=== PATIENT | male | born 1950 | race Caucasian/White ===

== ENCOUNTER 2016-07-27 14:41 | Emergency (ER) | payer MEDICAID ==
--- NOTE | 2016-07-27 15:06 | EDPHY ---
H & P Stated Complaint: tripped yesterday banged r coats on rock HPI/ROS: HPI CHIEF COMPLAINT: Right coats injury HISTORY OF PRESENT ILLNESS: This patient is a very pleasant 65-year-old male he denies any significant medical history, does not take any daily medications he states he was weed whacking grass yesterday on a hill around 3:00 p.m. he sustained a injury to his right anterior lower coats and that is an avulsion laceration. It is not gaping. There is no pus from it. It is now 24 hours old. Tells me his tetanus shot is not up-to-date. He denies any significant pain. Past Medical History: Denies medical history Past Surgical History: Denies surgical history Social History: Denies daily use drugs alcohol tobacco products Family History: Noncontributory ROS REVIEW OF SYSTEMS: A comprehensive 10 point review of systems is otherwise negative aside from elements mentioned in the history of present illness. Exam Constitutional triage nursing summary reviewed, vital signs reviewed, awake/ alert. Eyes normal conjunctivae and sclera, EOMI, PERRLA. HENT normal inspection, atraumatic, moist mucus membranes, no epistaxis, neck supple/ no meningismus, no raccoon eyes. Respiratory clear to auscultation bilaterally, normal breath sounds, no respiratory distress, no wheezing. Cardiovascular rate normal, regular rhythm, no murmur, no edema, distal pulses normal. Gastrointestinal soft, non-tender, no rebound, no guarding, normal bowel sounds, no distension, no pulsatile mass. Genitourinary no CVA tenderness. Musculoskeletal no midline vertebral tenderness, full range of motion, no calf swelling, no tenderness of extremities, no meningismus, good pulses, neurovascularly intact. Skin right coats distal aspect anterior: There is a 4 cm horizontal laceration that appears to be an avulsion laceration, no significant swelling, no significant redness, no drainage, no discharge Neurologic awake, alert and oriented x 3, AAOx3, moves all 4 extremities equally, motor intact, sensory intact, CN II-XII intact, normal cerebellar, normal vision, normal speech. Psychiatric normal mood/affect. Heme/Lymph/Immune no lymphadenopathy. Differential Diagnosis: Includes but is not limited to in a particular, right anterior leg soft tissue injury, avulsion laceration, need for tetanus shot. Need for wound care. Medical Decision Making: Plan for this patient will copiously clean his wound. Be placed on Keflex antibiotics prophylactically, his will need to heal by secondary intention as is 24 hours out. He will need to follow up with wound care. His tetanus shot will be updated. He understands return emergency room if he develops any worsening symptoms includes signs of infection redness, drainage, pus, swelling, pain Source: Patient - Personal History Current Tetanus/Diphtheria Vaccine: No - Medical/Surgical History Hx Asthma: No Hx Chronic Respiratory Disease: No Hx Diabetes: No Hx Cardiac Disease: No Hx Renal Disease: No Hx Cirrhosis: No Hx Alcoholism: Yes Hx HIV/AIDS: No Hx Splenectomy or Spleen Trauma: No Other PMH: Dental problems with tooth loss - Social History Smoking Status: Heavy smoker Constitutional: Initial Vital Signs Temperature (C) 36.9 C 07/27/16 14:45 Heart Rate 92 07/27/16 14:45 Respiratory Rate 16 07/27/16 14:45 Blood Pressure 175/121 H 07/27/16 14:45 O2 Sat (%) 95 07/27/16 14:45 O2 Delivery Mode Room Air Allergies/Adverse Reactions: No Known Allergies Allergy (Verified 07/27/16 14:44) Home Medications: Medication Instructions Recorded Cephalexin [Keflex] 500 mg PO Q6H #28 cap 07/27/16 Departure - Departure Disposition: Home, Routine, Self-Care Clinical Impression: Leg laceration Qualifiers: Encounter type: initial encounter Laterality: right Qualified Code(s): S81.811A - Laceration without foreign body, right lower leg, initial encounter Condition: Good Instructions: Laceration (ED) Additional Instructions: 1. Watch your wound closely for infection. 2. Take your antibiotic as prescribed. 3. Your tetanus shot has been updated here in the emergency room. 4. Please follow up with wound care. Call their for an appointment. Referrals: NONE *PRIMARY CARE P,. [Primary Care Provider] - As per Instructions [facility] [Clinic] - As per Instructions Prescriptions: Cephalexin [Keflex] 500 mg PO Q6H #28 cap
[2016-07-27] MEDS ORDERED: CEPHALEXIN 500 MG CAP PO ONE (15:13)
[2016-07-27] MEDS ORDERED: TDAP ADULT 0.5 ML INJ (BOOSTRIX) IM ONE ×2 (15:13→15:14)
[2016-07-27 15:43] VITALS: BP 148/106; PULSE 90; RESP 18; TEMP 98.2; O2SAT 94
== END 2016-07-27 15:43 | disposition home or self-care (01) ==
DX: S81.811A Laceration without foreign body, right lower leg, initial encounter (principal); F17.200 Nicotine dependence, unspecified, uncomplicated; Z23 Encounter for immunization; W22.8XXA Striking against or struck by other objects, initial encounter

== ENCOUNTER 2016-11-15 08:57 | Inpatient (IN) | payer MEDICAID ==
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
[2016-11-15] MEDS ORDERED: HYDROmorphONE/DILAUDID 1 MG/ML INJ IVP PRN (09:31)
[2016-11-15] MEDS ORDERED: ONDANSETRON 4 MG/2 ML VIAL IVP PRN ×2 (09:31→13:45)
[2016-11-15] MEDS ORDERED: ALBUTEROL 3 ML DEYVIAL IH PRN (13:45)
[2016-11-15] MEDS ORDERED: ACETAMINOPHEN 325 MG TAB PO PRN (13:45)
[2016-11-15] MEDS ORDERED: ONDANSETRON DISINTEGRATING 4 MG TAB PO PRN (13:45)
[2016-11-15] MEDS ORDERED: BEER 1 EACH EA PO SCH (14:45)
--- NOTE | 2016-11-15 14:59 | PDGENHP ---
History and Physical - Chief Complaint fall, rib pain - History of Present Illness 65 yo male who reports no significant past medical history presented to ED 2 days after a fall complaining of left rib pain. He reports slipping on ice on his back porch and landed on a metal grill stand, striking his left posterior ribs. He has since become more short of breath, endorses pleuritic chest pain. Also c/o cough, with some mucus. No prior h/o COPD that has been diagnosed. He denies fevers. He reports daily, heavy alcohol use and states he drinks heavily due to his bothering him. In the ED, CXR showed posterior left 11th rib fracture. He is found to be hypoxemic, requiring 8 LPM O2 on my exam. He is admitted for further management. History Information - Allergies/Home Medication List Allergies/Adverse Reactions: No Known Allergies Allergy (Verified 11/15/16 09:02) Home Medications: Aspirin [Aspirin 325 mg (*)] 325 mg PO DAILY 11/15/16 [Last Taken 11/14/16] I have personally reviewed and updated: family history, medical history, social history, surgical history - Past Medical History no pertinent PMH - Surgical History Reports: no pertinent surgical hx - Family History Positive for: non-pertinent - Social History Smoking Status: Heavy smoker Alcohol Use: Heavy Drug Use: Other Additional social history: Lives independently with his , sounds like a tumultuous relationship. Review of Systems Review of Systems: ROS: 10pt was reviewed & negative except for what was stated in HPI & below Physical Exam Physical Exam: Temp Pulse Resp BP Pulse Ox 36.8 C 100 20 167/77 H 94 11/15/16 14:44 11/15/16 14:44 11/15/16 14:44 11/15/16 14:44 11/15/16 08:57 O2 (L/minute) 6 Constitutional: chronically ill appearing, unkempt, cachectic Eyes: PERRL Ears, Nose, Mouth, Throat: moist mucous membranes Cardiovascular: regular rate and rhythym Respiratory: no respiratory distress, reduced air movement, other (left posterior lower ribs with ecchymosis and tenderness to palpation) Gastrointestinal: normoactive bowel sounds, soft, non-tender abdomen Skin: warm Musculoskeletal: full muscle strength Neurologic: AAOx3, other (tremulous) Psychiatric: anxious Lab Data & Imaging Review Visualized and Interpreted Chest x-ray results: Yes Chest X-Ray results: other (left posterior 11th rib fracture) Assessment & Plan Assessment: Acute hypoxemic respiratory failure - likely secondary to splinting due to pain from rib fracture. However, pt is quite hypoxemic, requiring 8 LPM, tachycardic and endorses pleuritic pain. I also suspect underlying obstructive lung disease, though no significant wheezing. -CTA to r/o PE and better evaluate ribs and lung parenchyma -supplemental O2, wean as able -schedule duonebs, prn albuterol nebs, no indicatio for steroids at this time -will need outpt PFT's Fall with left posterior rib fracture - Injury occurred 2 days ago, suspect etoh involved given history. CT as above -pain control with scheduled tylenol, prn oxycodone, dilaudid -PT/OT Alcohol dependence - suspect impending withdrawal. Pt states he does not plan to stop drinking. -check alcohol level -check baseline labs, cbc, cmp, INR -will provide BID beer to prevent withdrawal -case management consult Tobacco abuse - nicoderm prn DVT PPLX - SCD's for now, Lovenox if requires ongoing hospitalization Full code Dispo - obs
[2016-11-15 15:42] LABS: PROTIME(PATIENT) 13.1 SEC (12.0-15.0)
[2016-11-15 15:45] LABS: % IMMATURE GRANULYOCYTES 0.4 % (0.0-1.1); ABSOLUTE IMMATURE GRANULOCYTES 0.05 10^3/uL (0.00-0.10); ADD DIFF? NO; ADD MORPH? NO; ADD SCAN? NO; ATYPICAL LYMPHOCYTE FLAG 0 (0-99); FRAGMENT RBC FLAG 0 (0-99); HEMATOCRIT 40.8 % (40.0-51.0); HEMOGLOBIN 14.5 g/dL (13.7-17.5); LEFT SHIFT FLG 10 (0-99); LIPEMIA HEMOLYSIS FLAG 90 (0-99); MEAN CELL HEMOGLOBIN 35.2 pg (27.9-34.1); MEAN CELL HEMOGLOBIN CONCENTR. 35.5 g/dL (32.4-36.7); MEAN PLATELET VOLUME 9.7 fL (8.7-11.7); PLATELET CLUMPS FLAG 20 (0-99); PLATELET COUNT 230 10^3/uL (150-400); RED BLOOD CELL COUNT 4.12 10^6/uL (4.40-6.38); RED CELL DISTRIBUTION WIDTH 13.3 % (11.5-15.2)
[2016-11-15] MEDS ORDERED: NS 1,000 ML IV ONE (15:52)
[2016-11-15] MEDS: IPRATROPIUM/ALBUTEROL 3 ML DEYVIAL IH SCH ×2 (16:02→20:47)
[2016-11-15 16:09] LABS: ALANINE AMINOTRANSFERASE 44 IU/L (21-72); ALBUMIN 4.2 g/dL (3.5-5.0); ALKALINE PHOSPHATASE 86 IU/L (38-126); ANION GAP 11 mEq/L (8-16); ASPARTATE AMINOTRANSFERASE 76 IU/L (17-59); BILIRUBIN,TOTAL 2.3 mg/dL (0.1-1.4); CALCIUM 9.3 mg/dL (8.5-10.4); CARBON DIOXIDE 22 mEq/l (22-31); CHLORIDE 99 mEq/L (97-110); CREATININE 0.7 mg/dL (0.7-1.3); ETHANOL SERUM 11 mg/dL (0-10); GLOMERULAR FILTRATION RATE > 60; GLUCOSE 86 mg/dL (70-100); POTASSIUM 4.5 mEq/L (3.5-5.2); SODIUM 132 mEq/L (134-144); TOTAL PROTEIN 8.5 g/dL (6.3-8.2)
--- NOTE | 2016-11-15 16:30 | CPEKG ---
Heart Rate: 114 RR Interval: 526 P-R Interval: 180 QRSD Interval: 82 QT Interval: 340 QTC Interval: 469 P [place]: 77 QRS [place]: 69 T Wave [place]: 75 EKG Severity - ABNORMAL ECG - EKG Impression: SINUS TACHYCARDIA WITH FREQUENT PACs EKG Impression: ABNRM R PROG, CONSIDER ASMI OR LEAD PLACEMENT Electronically Signed By: Good Duncan 19-Nov-2016 08:35:21
[2016-11-15 16:36] LABS: BILIRUBIN-CONJUGATED 0.8 mg/dL (0.0-0.5); BILIRUBIN-UNCONJUGATED 1.5 mg/dL (0.0-1.1)
[2016-11-15] MEDS: oxyCODONE IR 5 MG TAB PO PRN (16:47)
[2016-11-15] MEDS: LORazepam 1 MG TAB PO PRN ×2 (16:48→22:44)
[2016-11-15] MEDS: FOLIC ACID 1 MG TAB PO SCH (16:48)
[2016-11-15] MEDS: MULTIVITAMINS 1 EACH TAB PO SCH (16:48)
[2016-11-15] MEDS: THIAMINE HCL 500 MG in NS 100 ML IV SCH (16:49)
[2016-11-15 17:11] LABS: PHENCYCLIDINE URINE BCH < 6 ng/ml (NEGATIVE); PHENCYCLIDINE URINE BCH NEGATIVE (NEGATIVE)
[2016-11-15 17:22] LABS: TETRAHYDROCANNABINOL URINE 136 ng/mL (NEGATIVE)
[2016-11-15] MEDS: PROPRANOLOL HCL 10 MG TAB PO SCH ×2 (18:38→22:44)
[2016-11-15] MEDS: chlordiazePOXIDE 25 MG CAP PO SCH ×2 (18:38→22:44)
[2016-11-15] MEDS: NS 1,000 ML IV SCH (20:00)
[2016-11-15] MEDS ORDERED: IOPAMIDOL (ISOVUE 370) 100 ML BTL IV ONE (20:18)
[2016-11-15] MEDS: LORazepam 2 MG/ML INJ IVP PRN (20:25)
--- NOTE | 2016-11-16 | PDCONSULT ---
Foot Orthopedist Note: Mr. Estrella was admitted to the Medical Service due to severe hypoxemia in the ED. He reports a fall 2 days before coming to the ED with associated pain in the right flank. He denies head injury or LOC. He has a history of heavy EtOH abuse. PMH: EtOH, tobacco NKDA SH: FH NC ROS: unobtainable PE: BP 128/86 P 100 R 17 O2sat 93% 5lpm T 37.0 thin somnolent male appearing older than his stated age HEENT: mild scleral icterus/no cervical tenderness Lungs: diminished breath sounds right base/focal tenderness right post costal margin-winces no crepitance Abd: soft/+BS, mild hepatomegaly, non-tender neuro: confused/mildly sedated due to prior agitation Imaging: CXR/Chest CT ocohyyho-fen-rhbliwsps RIGHT posterior 11th rib fx/no hepatic or subdiaphragmatic injury RLL congestion vs. infiltrate vs. contusion no pneumothorax or hemothorax wbc 11.5 H/H 14.5/40.8 Na 132 creat. 0.7 bili 2.3 (unconj 1.5) INR 1.0 AST 76 Tox + opiods + EtOH + THC Imp: 2 days s/p unwitnessed fall Apparent EtOH withdrawal uncomplicated RIGHT posterior 11th rib fx Rec: managment of EtOH withdrawal per Hospitalist Service/aggressive pulmonary toilet I will repeat a CXR in the morning S MD Heather, FACS
[2016-11-16] MEDS: HYDROmorphONE/DILAUDID 1 MG/ML INJ IVP PRN (00:45)
[2016-11-16] MEDS: LORazepam 2 MG/ML INJ IVP PRN ×4 (00:46→21:24)
[2016-11-16 04:22] LABS: % IMMATURE GRANULYOCYTES 0.3 % (0.0-1.1); ABSOLUTE IMMATURE GRANULOCYTES 0.04 10^3/uL (0.00-0.10); ADD DIFF? NO; ADD MORPH? NO; ADD SCAN? NO; ATYPICAL LYMPHOCYTE FLAG 10 (0-99); FRAGMENT RBC FLAG 0 (0-99); HEMOGLOBIN 12.3 g/dL (13.7-17.5); LEFT SHIFT FLG 40 (0-99); LIPEMIA HEMOLYSIS FLAG 90 (0-99); MEAN CELL HEMOGLOBIN 34.3 pg (27.9-34.1); MEAN CELL HEMOGLOBIN CONCENTR. 34.2 g/dL (32.4-36.7); MEAN CELL VOLUME 100.3 fL (81.5-99.8); MEAN PLATELET VOLUME 9.2 fL (8.7-11.7); PLATELET CLUMPS FLAG 10 (0-99); PLATELET COUNT 175 10^3/uL (150-400); RED BLOOD CELL COUNT 3.59 10^6/uL (4.40-6.38); RED CELL DISTRIBUTION WIDTH 13.2 % (11.5-15.2)
[2016-11-16 04:30] LABS: ANION GAP 8 mEq/L (8-16); CALCIUM 8.4 mg/dL (8.5-10.4); CARBON DIOXIDE 22 mEq/l (22-31); CHLORIDE 103 mEq/L (97-110); CREATININE 0.7 mg/dL (0.7-1.3); GLOMERULAR FILTRATION RATE > 60; GLUCOSE 88 mg/dL (70-100); MAGNESIUM 1.7 mg/dL (1.6-2.3); POTASSIUM 4.1 mEq/L (3.5-5.2); SODIUM 133 mEq/L (134-144)
[2016-11-16] MEDS: IPRATROPIUM/ALBUTEROL 3 ML DEYVIAL IH SCH ×4 (05:39→23:39)
--- NOTE | 2016-11-16 09:35 | HOSPPROG ---
Hospitalist Progress Note Assessment/Plan: Acute hypoxemic respiratory failure - likely multifactorial, some splinting due to pain from rib fracture, but imaging c/w chronic emphysema process with occluded RML and RLL, some concern for PNA -reviewed imaging with Dr. Blankenship, who recommends bronchoscopy, will defer until able to obtain consent -NPO for now -start ertapenem, will send BCx's, await sputum Cx from bronch -add mucomyst to scheduled nebs -add oral prednisone -will need outpt PFT's when returned to baseline Fall with left posterior rib fracture - Injury occurred 2 days ago, suspect etoh involved given history. CT as above -pain control with scheduled tylenol, prn oxycodone, dilaudid -PT/OT Alcohol dependence now in DT's - On scheduled Librium and prn Ativan, CIWA 17 this am, RN concerned about his safety with impulsivity -transfer to ICU for Precedex -increase Librium to 50 mg TID -prn ativan Tobacco abuse - nicoderm prn DVT PPLX - Lovenox Full code Dispo - cont inpt for ongoing management of respiratory failure and acute DT's Subjective: Pt tremulous, impulsive, unsafe. No fevers. Remains hypoxemic, SOB. Denies CP or pleuritic symptoms. Objective: Vital Signs Temp Pulse Resp BP Pulse Ox 36.9 C 90 15 125/91 H 91 L 11/16/16 07:15 11/16/16 07:15 11/16/16 07:15 11/16/16 07:15 11/16/16 07:15 Laboratory Results 11/16/16 04:03 11/16/16 04:03 11/15/16 11/16/16 11/17/16 05:59 05:59 05:59 Output Total 150 Balance -150 PT 13.1 SEC (12.0-15.0) 11/15/16 11:16 INR 1.00 (0.83-1.16) 11/15/16 11:16 - Physical Exam Constitutional: chronically ill appearing, unkempt, cachectic Eyes: PERRL Ears, Nose, Mouth, Throat: moist mucous membranes Cardiovascular: regular rate and rhythym Respiratory: no respiratory distress, inspiratory crackles Gastrointestinal: normoactive bowel sounds, soft, non-tender abdomen Skin: warm Musculoskeletal: abnormal gait Psychiatric: encephalopathic ICD10 Worksheet Patient Problems: Problems Problem Status Onset Hypoxia Acute Rib fracture Acute Alcoholism Acute Depression Acute Suicidal ideation Acute
[2016-11-16] MEDS: chlordiazePOXIDE 25 MG CAP PO SCH ×4 (09:46→21:19)
[2016-11-16] MEDS: THIAMINE HCL 500 MG in NS 100 ML IV SCH (09:47)
[2016-11-16] MEDS: PROPRANOLOL HCL 10 MG TAB PO SCH ×3 (09:47→21:20)
[2016-11-16] MEDS: MULTIVITAMINS 1 EACH TAB PO SCH (09:47)
[2016-11-16] MEDS: ASPIRIN 325 MG TAB PO SCH (09:47)
[2016-11-16] MEDS: FOLIC ACID 1 MG TAB PO SCH (09:47)
--- NOTE | 2016-11-16 11:45 | ASMTCASEMG ---
Living Arrangements What is your living Answers: With Spouse arrangement? Who do you live with? Type Of Residence What kind of residence do Answers: House you live in? Discharge Plan Comments Coordination Status Comments Notes: Chart reviewed and spoke w/ ANGELINA Santa. Pt is a 65 y/o man admitted w/ rib fracture after a fall and hypoxia. Pt is a heavy drinker. Pt is withdrawing from ETOH and being transferred to the ICU. Pt scored a 24 on his CIWA. Needs are TBD at this time. CM available for d/c needs. Date Signed: 11/16/2016 11:41 AM Electronically Signed By:KSENIA Verduzco
[2016-11-16] MEDS: DEXMEDETOMIDINE HCL 400 MCG in NS 100 ML IV SCH ×2 (11:58→20:28)
[2016-11-16] MEDS: oxyCODONE IR 5 MG TAB PO PRN (12:00)
[2016-11-16] MEDS: ACETYLCYSTEINE 10% 30 ML VIAL IH SCH ×3 (12:39→23:39)
[2016-11-16] MEDS: predniSONE 20 MG TAB PO SCH (13:22)
[2016-11-16] MEDS ORDERED: LIDOCAINE 2% JELLY 5 ML TUBE TP ONE (14:15)
[2016-11-16] MEDS ORDERED: LIDOCAINE 1% 300 MG/30 ML SDV MISC ONE (14:15)
[2016-11-16] MEDS ORDERED: BENZOCAINE UNIT DOSE SPRAY HURRICAINE MM ONE (14:15)
--- NOTE | 2016-11-16 15:37 | ECHO ---
[email or web address] [address] [address] Main: [phone] Fax: Transthoracic Echocardiogram Name: TRINITY ELLIOTT MR#: [id number] Study Date: 11/16/2016 Study Time: 02:05 PM Date of : 1950 Age: 65 year(s) Height: 180.3 cm (71 in.) Weight: 66.68 kg (147 lb.) BSA: 1.85 m2 Gender: Male Examination: Echo Indication: Hypoxemia Image Quality: Technically Difficult Contrast: Requested by: Melyssa Mansfield BP: / Heart Rate: Rhythm: Indication: Hypoxemia Procedure Staff Stationary Plant Operators: Padmini Hutton Reading Physician: Devonte Franco Requesting Provider: Conclusions: Concentric left ventricular hypertrophy with preserved ejection fraction of 60%. Right ventricular dilatation and reduced RV systolic function. Normal right ventricular systolic pressure. Aortic valve sclerosis. Mitral annular calcification. Measurements: Chambers Valvular Assessment AV/MV Valvular Assessment TV/PV Normal Normal Normal Name Value Range Name Value Range Name Value Range IVSd (2D): 1.1 cm (0.6 cm-1.1 AV meanP mmHg ( - ) TR Vmax: 2.47 mm/s ( - ) cm) MV E Vmax: 0.77 m/s ( - ) TR PGmax: 24 mmHg ( - ) LVDd (2D): 4.6 cm (4.2 cm-5.9 MV A Vmax: 0.65 m/s ( - ) syst. PAP: 29 mmHg ( - ) cm) MV E/A: 1.18 ( - ) LVDs (2D): 3.2 cm (2.1 cm-4 cm) LVPWd (2D): 1.1 cm (0.6 cm-1 cm) LVEF (2D): 60 (>=54 %) Continued Measurements: Valvular Assessment AV/MV Valvular Assessment TV/PV Name Value Name Value MV DecTime: 208 m/s CVP (est.): 5 mmHg Findings: Left Ventricle: Normal size left ventricle. Mild concentric LV hypertrophy. Normal global systolic LV function. EF is 60 %. Unable to assess diastolic dysfunction. Right Ventricle: Patient: TRINITY ELLIOTT Study Date: 11/16/2016 Page 1 of 2 02:05 PM Mildly enlarged RV size and reduced function by visual assessment.. Left Atrium: The left atrium is normal in size. Right Atrium: The right atrium is normal in size. Mitral Valve: The mitral valve is normal in appearance and function. No mitral stenosis is present. There is no mitral valve regurgitation. Aortic Valve: Aortic valve is not well visualized. Tricuspid Valve: The tricuspid valve is normal in appearance and function. Trivial tricuspid valve regurgitation. Pulmonic Valve: Pulmonary valve not visualized. Pericardium: No pericardial effusion. Exam Comments: Limited study due to poor patient compliance. Patient going through detox and uncooperative.. (No Signature Object) Patient: TRINITY ELLIOTT Study Date: 11/16/2016 Page 2 of 2 02:05 PM [id number]
--- NOTE | 2016-11-16 15:50 | PDMN ---
Medical Necessity Medical necessity: los >2 mn for AHRF r/t rib fx, requiring 8 L O2, tachycardic w/tremors & DTs, for IV Precedex & monitoring; hx alcoholism; per H&P & order
--- NOTE | 2016-11-16 16:33 | GCON ---
[f rep st] CONSULTATION PULMONARY/CRITICAL CARE CONSULTATION DATE OF CONSULTATION: 11/16/2016 REFERRING PHYSICIAN: Melyssa Mansfield MD REASON FOR REFERRAL: Evaluation and management of hypoxemia and worsening chest x-ray. HISTORY OF PRESENT ILLNESS: The patient is a 65-year-old gentleman, who was admitted to the hospital yesterday, 2 days after a fall. Apparently he slipped on some ice and landed on a metal grill, stri rosemarie his left posterior ribs. He has since become more short of breath and has pleuritic chest pain as well as a cough with some mucus. He has a history of daily heavy alcohol use. Upon initial evalu ation, he was found to have a right posterior 11th rib fracture and had hypoxemia, requiring fairly h igh-flow oxygen. His high oxygen needs have persisted. Not long after admission, he started to have signs of DTs, so has been placed on Precedex as well as scheduled benzodiazepines. He is currently minimally responsive. PAST MEDICAL HISTORY: None. MEDICATIONS: Aspirin at the time of admission. He is currently on Mucomyst, acetaminophen, albutero l, aspirin, scheduled Librium, medetomidine, hydromorphone, DuoNebs, lorazepam, prednisone 40 mg dianne y, propranolol, thiamine, and oxycodone. SOCIAL HISTORY: The patient reports daily smoking as well as heavy alcohol use. FAMILY HISTORY: Unremarkable. REVIEW OF SYSTEMS: Unobtainable due to the patient's mental status. PHYSICAL EXAMINATION: GENERAL: The patient is minimally responsive, moving only with noxious stimul i and not responding to commands/questions. VITAL SIGNS: Blood pressure is 146/83 with a heart rate of 86. He is afebrile. Oxygen saturations are 91% on 4 L. HEENT: Normocephalic and atraumatic. No icterus. NECK: No JVD. Trachea is midline. CHEST: Decreased breath sounds in the right base. CARDIAC: Regular rate and rhythm without murmur. ABDOMEN: Soft, nontender. Bowel sounds are pres ent. EXTREMITIES: No clubbing, cyanosis, or edema. NEURO: The patient is sedated and minimally re sponsive. He is able to move all extremities symmetrically with noxious stimuli. LABORATORY: White blood count is 12.6 with a hemoglobin of 12.3, platelet count is 175. Chemistry g roup is remarkable for sodium of 133. BNP is 1290. Procalcitonin is 1.0. Venous lactate is 1.3. A lcohol level was 11 at the time of admission. His screen was also positive for opiates and marijuana . CT scan of the chest shows a minimally displaced posterior right rib fracture. There is no pulmon raúl embolism. The right bronchus intermedius is completely occluded, with complete occlusion of all airways distal to this. The patient has inter and intralobular septal thickening with mucus plugging in the right middle lobe and right lower lobe. Images reviewed. ASSESSMENT: 1. Pneumonia with mucus plugging. This is likely due to blunting with retained secretions, likely i n part due to undiagnosed chronic obstructive pulmonary disease/bronchitis. The patient's oxygen sat urations are currently satisfactory, but given the extensive mucus plugging he would probably benefit from bronchoscopy. He is currently unable to give consent and we have not been able to reach family members. I do not think this is urgent but I think it would be reasonable to try to proceed with th is once consent can be obtained, probably tomorrow. If he decompensates in the meantime, bronchoscop y could be performed on an emergent basis. 2. Alcohol withdrawal. The patient is currently on Precedex and scheduled Librium, and is quite sed ated. 3. Probable undiagnosed chronic obstructive pulmonary disease. RECOMMENDATIONS: 1. Start ertapenem for mucus plugging and possible aspiration. 2. Continue bronchodilators. 3. Continue CIWA protocol/alcohol withdrawal. 4. Continue prednisone. /[id number]/MODL
[2016-11-16] MEDS: PANTOPRAZOLE SODIUM 40 MG in NS 100 ML IV SCH (17:04)
[2016-11-16] MEDS: ERTAPENEM 1 GM in NS 100 ML IV SCH (17:04)
[2016-11-16] MEDS: NICOTINE 21 MG/24 HR PATCH TD SCH (17:12)
[2016-11-16] MEDS: ENOXAPARIN 40 MG/0.4 ML SYR SC SCH (18:08)
--- NOTE | 2016-11-16 20:51 | SOAPPROG ---
SOAP Progress Note Assessment/Plan: Assessment: 65-year-old male with a single right posterior rib fracture seen earlier today Patient quite sedated at that time Tertiary exam: Head neck exam revealed no evidence of significant trauma, and nonicteric Chest was decreased breath sounds in the right lower lobe but minimal tenderness cor regular rhythm Abdomen is soft nontender Extremities with full range of motion full pulses Probable alcohol withdrawal and a single rib fracture from fall complicated by pneumonia Plan: Will sign off from a trauma standpoint with antibiotic treatment per Internal Medicine 11/16/16 20:49 Objective: Vital Signs Temp Pulse Resp BP Pulse Ox 37.4 C 71 19 157/88 H 96 11/16/16 20:00 11/16/16 20:00 11/16/16 20:00 11/16/16 20:00 11/16/16 20:00 Laboratory Results 11/16/16 04:03 11/16/16 04:03 11/15/16 11/16/16 11/17/16 05:59 05:59 05:59 Intake Total 375 Output Total 150 Balance -150 375 PT 13.1 SEC (12.0-15.0) 11/15/16 11:16 INR 1.00 (0.83-1.16) 11/15/16 11:16 ICD10 Worksheet Patient Problems: Problems Problem Status Onset Hypoxia Acute Rib fracture Acute Alcoholism Acute Depression Acute Suicidal ideation Acute
[2016-11-17] MEDS: LORazepam 2 MG/ML INJ IVP PRN ×3 (03:59→11:37)
[2016-11-17] MEDS: NS 1,000 ML IV SCH (03:59)
[2016-11-17] MEDS: ACETYLCYSTEINE 10% 30 ML VIAL IH SCH ×4 (05:29→21:29)
[2016-11-17] MEDS: IPRATROPIUM/ALBUTEROL 3 ML DEYVIAL IH SCH ×4 (05:29→21:28)
[2016-11-17 06:25] LABS: % IMMATURE GRANULYOCYTES 0.5 % (0.0-1.1); ABSOLUTE IMMATURE GRANULOCYTES 0.05 10^3/uL (0.00-0.10); ADD DIFF? NO; ADD MORPH? NO; ADD SCAN? NO; ATYPICAL LYMPHOCYTE FLAG 0 (0-99); FRAGMENT RBC FLAG 0 (0-99); HEMATOCRIT 37.4 % (40.0-51.0); HEMOGLOBIN 12.9 g/dL (13.7-17.5); LEFT SHIFT FLG 20 (0-99); LIPEMIA HEMOLYSIS FLAG 90 (0-99); MEAN CELL HEMOGLOBIN 34.7 pg (27.9-34.1); MEAN CELL HEMOGLOBIN CONCENTR. 34.5 g/dL (32.4-36.7); MEAN CELL VOLUME 100.5 fL (81.5-99.8); MEAN PLATELET VOLUME 9.4 fL (8.7-11.7); PLATELET CLUMPS FLAG 0 (0-99); PLATELET COUNT 163 10^3/uL (150-400); RED BLOOD CELL COUNT 3.72 10^6/uL (4.40-6.38); RED CELL DISTRIBUTION WIDTH 13.2 % (11.5-15.2)
[2016-11-17 06:48] LABS: ANION GAP 6 mEq/L (8-16); CALCIUM 8.4 mg/dL (8.5-10.4); CARBON DIOXIDE 22 mEq/l (22-31); CHLORIDE 105 mEq/L (97-110); CREATININE 0.6 mg/dL (0.7-1.3); GLOMERULAR FILTRATION RATE > 60; GLUCOSE 96 mg/dL (70-100); MAGNESIUM 1.9 mg/dL (1.6-2.3); POTASSIUM 3.9 mEq/L (3.5-5.2); SODIUM 133 mEq/L (134-144)
[2016-11-17] MEDS: ENOXAPARIN 40 MG/0.4 ML SYR SC SCH (07:49)
[2016-11-17] MEDS: PANTOPRAZOLE SODIUM 40 MG in NS 100 ML IV SCH (07:49)
[2016-11-17] MEDS: ERTAPENEM 1 GM in NS 100 ML IV SCH (07:49)
[2016-11-17] MEDS ORDERED: DEXMEDETOMIDINE HCL 400 MCG in NS 100 ML IV SCH (08:30)
[2016-11-17] MEDS: THIAMINE HCL 500 MG in NS 100 ML IV SCH (08:58)
[2016-11-17] MEDS: chlordiazePOXIDE 25 MG CAP PO SCH ×3 (09:39→23:37)
[2016-11-17] MEDS: NICOTINE 21 MG/24 HR PATCH TD SCH (09:55)
[2016-11-17] MEDS: predniSONE 20 MG TAB PO SCH (11:08)
[2016-11-17] MEDS: ASPIRIN 325 MG TAB PO SCH (11:08)
[2016-11-17] MEDS: PROPRANOLOL HCL 10 MG TAB PO SCH ×3 (11:08→23:37)
[2016-11-17] MEDS: FOLIC ACID 1 MG TAB PO SCH (11:08)
[2016-11-17] MEDS: MULTIVITAMINS 1 EACH TAB PO SCH (11:08)
--- NOTE | 2016-11-17 11:40 | HOSPPROG ---
Hospitalist Progress Note Assessment/Plan: Acute hypoxemic respiratory failure - likely multifactorial: PNA, splinting due to pain from rib fracture, chronic emphysema process with occluded RML and RLL on CT. Discussed with pulm, appreciate assistance. -NPO for now, considering bronchoscopy, though pt unable to consent, need to reach -Cont Ertapenem, BCx's neg -send BAL Cx if bronch occurs -cont mucomyst with scheduled nebs -cont oral prednisone -will need outpt PFT's when returned to baseline Fall with left posterior rib fracture - Injury occurred 2 days ago, suspect etoh involved given history. CT as above -pain control with scheduled tylenol, prn oxycodone, dilaudid -PT/OT Alcohol dependence now in DT's - Required Precedex overnight, quite sedated this am -stop precedex -continue scheduled librium 50 mg TID -prn ativan -CIWA monitoring -CM consult Tobacco abuse - nicoderm prn DVT PPLX - Lovenox Full code Dispo - cont inpt for ongoing management of respiratory failure and acute DT's Subjective: Pt more awake, off precedex, remains confused, mumbling. Denies CP or SOB. Some coughing. No fevers. Little oral intake. Objective: Vital Signs Temp Pulse Resp BP Pulse Ox 36.3 C 74 22 H 134/85 H 97 11/17/16 03:39 11/17/16 11:08 11/17/16 07:59 11/17/16 11:08 11/17/16 07:59 Laboratory Results 11/17/16 06:17 11/17/16 06:17 11/16/16 11/17/16 11/18/16 05:59 05:59 05:59 Intake Total 1315.7 Output Total 150 900 Balance -150 415.7 PT 13.1 SEC (12.0-15.0) 11/15/16 11:16 INR 1.00 (0.83-1.16) 11/15/16 11:16 - Physical Exam Constitutional: chronically ill appearing, unkempt, cachectic Ears, Nose, Mouth, Throat: moist mucous membranes Cardiovascular: regular rate and rhythym, no murmur, rub, or gallop Respiratory: no respiratory distress, reduced air movement, inspiratory crackles Gastrointestinal: normoactive bowel sounds, soft, non-tender abdomen Skin: warm Musculoskeletal: full muscle strength Psychiatric: encephalopathic ICD10 Worksheet Patient Problems: Problems Problem Status Onset Hypoxia Acute Rib fracture Acute Alcoholism Acute Depression Acute Suicidal ideation Acute
--- NOTE | 2016-11-17 15:05 | PDINTPN ---
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 Tremulous and a bit sedated, not agitated. RLL aspiration pneumonia: CXR improved, oxygen needs modest. On Ertapenem. Might benefit from bronch, but since he's doing well and CXR improved, will hold off for now. Plan: Tx to M/S Advance diet Follow CXR, bronch if not improving. 11/17/16 15:05 Subjective: More alert. Objective: Vital Signs Temp Pulse Resp BP Pulse Ox 36.4 C 74 19 100/63 97 11/17/16 12:00 11/17/16 12:00 11/17/16 12:00 11/17/16 12:00 11/17/16 12:00 Laboratory Results 11/17/16 06:17 11/17/16 06:17 11/16/16 11/17/16 11/18/16 05:59 05:59 05:59 Intake Total 1315.7 Output Total 150 900 Balance -150 415.7 PT 13.1 SEC (12.0-15.0) 11/15/16 11:16 INR 1.00 (0.83-1.16) 11/15/16 11:16 CXR: Improved RLL infiltrate. Images reviewed. Physical Exam - Physical Exam General Appearance: alert, no apparent distress EENT: normal ENT inspection Neck: normal inspection Respiratory: crackles (bilateral bases) Cardiac/Chest: regular rate, rhythm, No edema Abdomen: normal bowel sounds Skin: warm/dry Extremities: normal inspection Neuro/Psych: alert, other (tremulous), No motor weakness ICD10 Worksheet Patient Problems: Problems Problem Status Onset Hypoxia Acute Rib fracture Acute Alcoholism Acute Depression Acute Suicidal ideation Acute
--- NOTE | 2016-11-17 15:31 | ASMTCMCOM ---
CM Note CM Note Notes: Pt is off Precedex, PT/OT evals pending. CIWA 5 at 15:00 today. Currently on IV invanz. Pt transferring to . CM will continue to follow. Date Signed: 11/17/2016 03:31 PM Electronically Signed By:MARYAM Llamas
[2016-11-17] MEDS: LORazepam 1 MG TAB PO PRN (16:55)
[2016-11-18 04:48] LABS: % IMMATURE GRANULYOCYTES 0.8 % (0.0-1.1); ADD DIFF? NO; ADD MORPH? NO; ADD SCAN? NO; ATYPICAL LYMPHOCYTE FLAG 0 (0-99); FRAGMENT RBC FLAG 0 (0-99); HEMATOCRIT 34.7 % (40.0-51.0); HEMOGLOBIN 12.1 g/dL (13.7-17.5); LEFT SHIFT FLG 0 (0-99); LIPEMIA HEMOLYSIS FLAG 90 (0-99); MEAN CELL HEMOGLOBIN 34.8 pg (27.9-34.1); MEAN CELL HEMOGLOBIN CONCENTR. 34.9 g/dL (32.4-36.7); MEAN CELL VOLUME 99.7 fL (81.5-99.8); MEAN PLATELET VOLUME 9.7 fL (8.7-11.7); PLATELET CLUMPS FLAG 0 (0-99); PLATELET COUNT 204 10^3/uL (150-400); RED BLOOD CELL COUNT 3.48 10^6/uL (4.40-6.38); RED CELL DISTRIBUTION WIDTH 13.2 % (11.5-15.2)
[2016-11-18 05:03] LABS: ANION GAP 4 mEq/L (8-16); CALCIUM 8.6 mg/dL (8.5-10.4); CARBON DIOXIDE 26 mEq/l (22-31); CHLORIDE 105 mEq/L (97-110); CREATININE 0.6 mg/dL (0.7-1.3); GLOMERULAR FILTRATION RATE > 60; GLUCOSE 130 mg/dL (70-100); POTASSIUM 3.8 mEq/L (3.5-5.2); SODIUM 135 mEq/L (134-144)
[2016-11-18] MEDS: ACETYLCYSTEINE 10% 30 ML VIAL IH SCH ×4 (06:19→21:46)
[2016-11-18] MEDS: IPRATROPIUM/ALBUTEROL 3 ML DEYVIAL IH SCH ×4 (06:19→21:46)
[2016-11-18] MEDS: MULTIVITAMINS 1 EACH TAB PO SCH (07:51)
[2016-11-18] MEDS: chlordiazePOXIDE 25 MG CAP PO SCH ×4 (07:51→21:32)
[2016-11-18] MEDS: FOLIC ACID 1 MG TAB PO SCH (07:53)
[2016-11-18] MEDS: ASPIRIN 325 MG TAB PO SCH (07:53)
[2016-11-18] MEDS: PANTOPRAZOLE SODIUM 40 MG TAB PO SCH (07:54)
[2016-11-18] MEDS: predniSONE 20 MG TAB PO SCH (07:54)
[2016-11-18] MEDS: PROPRANOLOL HCL 10 MG TAB PO SCH ×3 (07:55→21:33)
[2016-11-18] MEDS: NICOTINE 21 MG/24 HR PATCH TD SCH (07:58)
[2016-11-18] MEDS: ENOXAPARIN 40 MG/0.4 ML SYR SC SCH (07:59)
--- NOTE | 2016-11-18 09:15 | HOSPPROG ---
Hospitalist Progress Note Assessment/Plan: Acute hypoxemic respiratory failure - likely multifactorial: PNA, splinting due to pain from rib fracture, chronic emphysema process with mucus plugging and occluded RML and RLL on CT. Discussed with pulm, appreciate assistance. -Bronchoscopy considered, though had been unable to consent due to DT's, may open up on his own -Repeat CXR in am -Cont Ertapenem for possible asp pna, BCx's neg, likely change to po tomorrow -send BAL Cx if bronch occurs -cont mucomyst with scheduled nebs -cont oral prednisone -will need outpt PFT's when returned to baseline and pulm f/u Fall with right posterior rib fracture - suspect etoh involved given history. CT as above -pain control with scheduled tylenol, prn oxycodone, dilaudid -PT/OT Alcohol dependence now in DT's - Required Precedex, now off, CIWA's ~4 overnight and this am -decrease librium to 25 TID -prn ativan -CIWA monitoring -CM consult Tobacco abuse - nicoderm prn DVT PPLX - Lovenox Full code Dispo - cont inpt for ongoing management of respiratory failure and acute DT's, needs PT/OT, may require rehab, CM consulted Subjective: Pt doing better. Eating breakfast, a bit tremulous. No fevers. Minimal cough. No CP or SOB. Objective: Vital Signs Temp Pulse Resp BP Pulse Ox 36.3 C 70 14 149/94 H 93 11/18/16 08:00 11/18/16 06:27 11/18/16 08:00 11/18/16 08:00 11/18/16 06:27 Laboratory Results 11/18/16 04:21 11/18/16 04:21 11/17/16 11/18/16 11/19/16 05:59 05:59 05:59 Intake Total 1315.7 2380 Output Total 900 900 Balance 415.7 1480 PT 13.1 SEC (12.0-15.0) 11/15/16 11:16 INR 1.00 (0.83-1.16) 11/15/16 11:16 - Physical Exam Constitutional: chronically ill appearing, unkempt, cachectic Eyes: PERRL Ears, Nose, Mouth, Throat: moist mucous membranes Cardiovascular: regular rate and rhythym Respiratory: no respiratory distress, reduced air movement Gastrointestinal: normoactive bowel sounds, soft, non-tender abdomen Skin: warm Musculoskeletal: generalized weakness, other (mildly tremulous) Neurologic: AAOx3 Psychiatric: interacting appropriately ICD10 Worksheet Patient Problems: Problems Problem Status Onset Hypoxia Acute Rib fracture Acute Alcoholism Acute Depression Acute Suicidal ideation Acute
[2016-11-18] MEDS: ERTAPENEM 1 GM in NS 100 ML IV SCH (11:39)
[2016-11-18] MEDS: LORazepam 2 MG/ML INJ IVP PRN (12:47)
[2016-11-18] MEDS: THIAMINE HCL 500 MG in NS 100 ML IV SCH ×2 (13:13→23:12)
--- NOTE | 2016-11-18 14:33 | ASMTCMCOM ---
CM Note CM Note Notes: Pt still withdrawing, OT recs homecare and PT still pending, CM cont to assess. Date Signed: 11/18/2016 02:32 PM Electronically Signed By:Annette Redding RN
[2016-11-18] MEDS: LORazepam 1 MG TAB PO PRN (21:33)
[2016-11-19] MEDS: LORazepam 1 MG TAB PO PRN (04:52)
[2016-11-19] MEDS: THIAMINE HCL 500 MG in NS 100 ML IV SCH (05:05)
[2016-11-19 05:21] LABS: % IMMATURE GRANULYOCYTES 0.9 % (0.0-1.1); ADD DIFF? NO; ADD MORPH? NO; ADD SCAN? NO; ATYPICAL LYMPHOCYTE FLAG 10 (0-99); FRAGMENT RBC FLAG 0 (0-99); HEMATOCRIT 33.9 % (40.0-51.0); HEMOGLOBIN 11.6 g/dL (13.7-17.5); LEFT SHIFT FLG 0 (0-99); LIPEMIA HEMOLYSIS FLAG 90 (0-99); MEAN CELL HEMOGLOBIN 34.2 pg (27.9-34.1); MEAN CELL HEMOGLOBIN CONCENTR. 34.2 g/dL (32.4-36.7); MEAN PLATELET VOLUME 9.4 fL (8.7-11.7); PLATELET CLUMPS FLAG 10 (0-99); PLATELET COUNT 228 10^3/uL (150-400); RED BLOOD CELL COUNT 3.39 10^6/uL (4.40-6.38); RED CELL DISTRIBUTION WIDTH 13.3 % (11.5-15.2)
[2016-11-19] MEDS: IPRATROPIUM/ALBUTEROL 3 ML DEYVIAL IH SCH ×4 (06:04→22:21)
[2016-11-19] MEDS: ACETYLCYSTEINE 10% 30 ML VIAL IH SCH (06:05)
[2016-11-19] MEDS: LORazepam 2 MG/ML INJ IVP PRN ×5 (06:35→23:34)
[2016-11-19] MEDS ORDERED: LORazepam 2 MG/ML INJ IVP ONE (07:16)
[2016-11-19] MEDS ORDERED: HALOPERIDOL LACT 5 MG/ML INJ IVP ONE (07:16)
--- NOTE | 2016-11-19 07:21 | HOSPPROG ---
Hospitalist Progress Note Assessment/Plan: Cross cover: Called by RN about patient exhibiting severe agitation and CIWA score of 30 despite max dose Ativan per floor protocol. Will give Ativan 2 mg IV and Haldol 2 mg IV now, and initiate transfer to ICU w/ ICU level CIWA orders. Objective: Vital Signs Temp Pulse Resp BP Pulse Ox 36.6 C 67 17 172/103 H 94 11/19/16 04:00 11/19/16 04:00 11/19/16 04:00 11/19/16 04:00 11/19/16 04:00 Laboratory Results 11/19/16 04:53 11/18/16 04:21 11/18/16 11/19/16 11/20/16 05:59 05:59 05:59 Intake Total 2380 500 Output Total 900 400 Balance 1480 100 PT 13.1 SEC (12.0-15.0) 11/15/16 11:16 INR 1.00 (0.83-1.16) 11/15/16 11:16 ICD10 Worksheet Patient Problems: Problems Problem Status Onset Hypoxia Acute Rib fracture Acute Alcoholism Acute Depression Acute Suicidal ideation Acute
--- NOTE | 2016-11-19 09:01 | HOSPPROG ---
Hospitalist Progress Note Assessment/Plan: Acute hypoxemic respiratory failure - likely multifactorial: RLL / RML PNA, splinting due to pain from rib fracture, and chronic emphysema process with mucus plugging and occluded RML and RLL on CT. COPD not previously diagnosed. Discussed with pulm, appreciate assistance. O2 req 6 LPM --> 0.5 LPM. Repeat CXR shows some improvement -Bronchoscopy considered, though had been unable to consent due to DT's, may open up on his own -Cont Ertapenem for suspected asp pna, BCx's neg -send BAL Cx if bronch occurs -cont scheduled duonebs, prn alb -change to IV solumedrol from oral pred, day 4/ steroid burst -has received 72 hrs of mucomyst, will d/c -will need outpt PFT's and pulm f/u when returned to baseline Fall with right posterior rib fracture - suspect etoh involved given history. CT as above -pain control with scheduled tylenol, prn oxycodone, dilaudid -PT/OT Alcohol dependence in active DT's - Required Precedex initially, then transitioned to librium 50 mg TID. On day 5 of w/d, Librium was decreased to 25 TID with CIWA's of 4, but he then developed more severe w/d symptoms with CIWA 31. He was given 2 mg IV Ativan, 2 mg IV Haldol, transferred back to ICU. -resume Precedex -prn ativan, haldol -cont CIWA monitoring -CM consult Hypertension - in setting of w/d. -prn hydralazine Tobacco abuse - nicoderm prn DVT PPLX - Lovenox Full code Dispo - cont inpt for ongoing management of respiratory failure and acute DT's, needs PT/OT, may require rehab, CM consulted Subjective: Pt paranoid, a bit more calm now on precedex. No pain. No CP/SOB. No fevers Objective: Vital Signs Temp Pulse Resp BP Pulse Ox 36.6 C 67 17 172/103 H 94 11/19/16 04:00 11/19/16 04:00 11/19/16 04:00 11/19/16 04:00 11/19/16 04:00 Laboratory Results 11/19/16 04:53 11/18/16 04:21 11/18/16 11/19/16 11/20/16 05:59 05:59 05:59 Intake Total 2380 500 Output Total 900 400 Balance 1480 100 PT 13.1 SEC (12.0-15.0) 11/15/16 11:16 INR 1.00 (0.83-1.16) 11/15/16 11:16 - Physical Exam Constitutional: chronically ill appearing Eyes: PERRL Ears, Nose, Mouth, Throat: moist mucous membranes Cardiovascular: regular rate and rhythym Respiratory: no respiratory distress, clear to auscultation Gastrointestinal: normoactive bowel sounds, soft, non-tender abdomen Skin: warm Musculoskeletal: full muscle strength Psychiatric: encephalopathic ICD10 Worksheet Patient Problems: Problems Problem Status Onset Hypoxia Acute Rib fracture Acute Alcoholism Acute Depression Acute Suicidal ideation Acute
[2016-11-19] MEDS: DEXMEDETOMIDINE HCL 400 MCG in NS 100 ML IV SCH ×4 (09:22→22:18)
[2016-11-19] MEDS ORDERED: HALOPERIDOL LACT 5 MG/ML INJ IVP PRN ×2 (09:25→10:03)
[2016-11-19] MEDS ORDERED: PANTOPRAZOLE SODIUM 40 MG in NS 100 ML IV SCH (09:30)
--- NOTE | 2016-11-19 09:58 | PDINTPN ---
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 Now doing better with Precedex gtt, but still having delusions/agitation. RLL aspiration pneumonia: CXR improved, oxygen needs modest. On Ertapenem. Might benefit from bronch (extensive right mainstem->RLL mucous impaction on CT scan), but since oxygenation OK on RA and he's unlikely to consent, will hold off for now. Plan: Continue Precedex. Increase PRN Haldol, scheduled Librium Advance diet Hold off on bronch for now, consider proceeding if he worsens. He could have an endobronchial lesion, so follow-up imaging is warranted. 11/19/16 10:07 Subjective: Agitated, delusional thoughts. Denies dyspnea. Objective: Vital Signs Temp Pulse Resp BP Pulse Ox 36.4 C 83 28 H 152/89 H 94 11/19/16 08:00 11/19/16 08:00 11/19/16 08:00 11/19/16 08:00 11/19/16 04:00 Laboratory Results 11/19/16 04:53 11/18/16 04:21 11/18/16 11/19/16 11/20/16 05:59 05:59 05:59 Intake Total 2380 500 Output Total 900 400 Balance 1480 100 PT 13.1 SEC (12.0-15.0) 11/15/16 11:16 INR 1.00 (0.83-1.16) 11/15/16 11:16 Physical Exam - Physical Exam General Appearance: alert, no apparent distress EENT: normal ENT inspection Neck: normal inspection Respiratory: crackles (right base) Cardiac/Chest: regular rate, rhythm, No edema Abdomen: normal bowel sounds, non-tender, soft Skin: normal color, warm/dry Extremities: normal inspection Neuro/Psych: alert, normal mood/affect, oriented x 3 ICD10 Worksheet Patient Problems: Problems Problem Status Onset Hypoxia Acute Rib fracture Acute Alcoholism Acute Depression Acute Suicidal ideation Acute
[2016-11-19] MEDS ORDERED: HALOPERIDOL LACT 5 MG/ML INJ IV ONE (10:00)
[2016-11-19] MEDS: hydrALAZINE 20 MG/ML VIAL IVP PRN (10:54)
[2016-11-19] MEDS: FOLIC ACID 1 MG TAB PO SCH (10:59)
[2016-11-19] MEDS: MULTIVITAMINS 1 EACH TAB PO SCH (10:59)
[2016-11-19] MEDS: ASPIRIN 325 MG TAB PO SCH (10:59)
[2016-11-19] MEDS: ERTAPENEM 1 GM in NS 100 ML IV SCH (11:13)
[2016-11-19] MEDS: NICOTINE 21 MG/24 HR PATCH TD SCH (11:14)
[2016-11-19] MEDS: ENOXAPARIN 40 MG/0.4 ML SYR SC SCH (11:14)
[2016-11-19] MEDS: methylPREDNISolone SOD SUCC 125 MG/2 ML VIAL IVP SCH (11:14)
[2016-11-19] MEDS: PROPRANOLOL HCL 10 MG TAB PO SCH (11:24)
[2016-11-19] MEDS: chlordiazePOXIDE 25 MG CAP PO SCH ×3 (11:24→21:13)
[2016-11-19] MEDS: predniSONE 20 MG TAB PO SCH (11:25)
[2016-11-19] MEDS: PANTOPRAZOLE SODIUM 40 MG TAB PO SCH (11:25)
[2016-11-19] MEDS ORDERED: LABETALOL HCL 50 MG/10 ML SYR IVP PRN (12:00)
[2016-11-19] MEDS: LABETALOL HCL 5 MG/ML 20 ML MDV IVP PRN ×2 (12:21→13:13)
[2016-11-19] MEDS: FAMOTIDINE 20 MG/NACL 50 ML IV SCH ×2 (12:42→21:13)
[2016-11-19] MEDS: niCARdipine/NACL 200 ML IV SCH ×2 (13:48→21:13)
[2016-11-20] MEDS: DEXMEDETOMIDINE HCL 400 MCG in NS 100 ML IV SCH ×3 (02:39→16:44)
[2016-11-20] MEDS: IPRATROPIUM/ALBUTEROL 3 ML DEYVIAL IH SCH (04:37)
[2016-11-20] MEDS: MULTIVITAMINS 1 EACH TAB PO SCH (08:17)
[2016-11-20] MEDS: chlordiazePOXIDE 25 MG CAP PO SCH ×3 (08:17→21:07)
[2016-11-20] MEDS: ASPIRIN 325 MG TAB PO SCH (08:17)
[2016-11-20] MEDS: FOLIC ACID 1 MG TAB PO SCH (08:17)
[2016-11-20] MEDS: NICOTINE 21 MG/24 HR PATCH TD SCH (08:18)
[2016-11-20] MEDS: ENOXAPARIN 40 MG/0.4 ML SYR SC SCH (08:18)
[2016-11-20] MEDS: FAMOTIDINE 20 MG/NACL 50 ML IV SCH (08:18)
[2016-11-20] MEDS: ERTAPENEM 1 GM in NS 100 ML IV SCH (08:19)
[2016-11-20] MEDS: methylPREDNISolone SOD SUCC 125 MG/2 ML VIAL IVP SCH (08:19)
[2016-11-20] MEDS: THIAMINE HCL 200 MG/2 ML VIAL IM SCH (08:19)
[2016-11-20] MEDS: niCARdipine/NACL 200 ML IV SCH (08:20)
[2016-11-20] MEDS ORDERED: IPRATROPIUM/ALBUTEROL 3 ML DEYVIAL IH PRN (11:08)
[2016-11-20] MEDS: LABETALOL HCL 5 MG/ML 20 ML MDV IVP PRN (16:41)
[2016-11-20] MEDS: LORazepam 2 MG/ML INJ IVP PRN ×2 (16:41→21:07)
[2016-11-20] MEDS: NS 1,000 ML IV SCH (16:44)
--- NOTE | 2016-11-20 17:20 | PDINTPN ---
Land Manager Progress Note Assessment/Plan: Assessment: EtOH Withdrawal: Severe. Was on high-dose Precedex overnight. Got Ativan as well secondary to agitation. On Librium alone now. RLL aspiration pneumonia: CXR improved, oxygen needs resolved, on room air. On Ertapenem. No indication for bronchoscopy at this time. Tob Abuse/COPD: On duo nebs, broncho pulmonary therapies. Prophylaxis: On enoxaparin and famotidine. Plan: Continue scheduled Librium. Continue CIWA. Continue antibiotics for pneumonia, bronchodilator treatments. Ativan and Precedex if needed again can be given. Follow laboratory, clinical status. Continue prophylactic enoxaparin and famotidine orally. 30 minutes of critical care time spent directly with the patient. Discussed with nursing, RT, and the ICU multi disciplinary team. Subjective: Somnolent, arouses weakly Objective: Vital Signs Temp Pulse Resp BP Pulse Ox 36.7 C 67 14 162/98 H 98 11/20/16 16:00 11/20/16 16:41 11/20/16 16:00 11/20/16 16:41 11/20/16 16:00 Laboratory Results 11/19/16 04:53 11/18/16 04:21 11/19/16 11/20/16 11/21/16 05:59 05:59 05:59 Intake Total 500 991 481 Output Total 400 1000 Balance 100 -9 481 PT 13.1 SEC (12.0-15.0) 11/15/16 11:16 INR 1.00 (0.83-1.16) 11/15/16 11:16 Laboratory Tests 11/18/16 04:21 Calcium 8.6 [address] head yesterday: Negative. Physical Exam - Physical Exam General Appearance: obtunded (Arouses weakly), thin EENT: PERRL/EOMI Neck: normal inspection Respiratory: lungs clear, decreased breath sounds (At bases), No wheezing Cardiac/Chest: regular rate, rhythm Abdomen: non-tender, soft, No normal bowel sounds (Decreased, present) Male Genitalia: other (No Porras catheter) Skin: normal color, warm/dry Extremities: pedal edema (Trace) Neuro/Psych: no motor/sensory deficits, cognition abnormalities (Secondary to sedation, on Librium) ICD10 Worksheet Patient Problems: Problems Problem Status Onset Hypoxia Acute Rib fracture Acute Alcoholism Acute Depression Acute Suicidal ideation Acute
--- NOTE | 2016-11-20 17:37 | HOSPPROG ---
Hospitalist Progress Note Assessment/Plan: * Etoh withdrawal - severe -precedex gtt -continue benzos for seizure prevention * Acute respiratory failure * Pneumonia, possible aspiration -IV Invanz * COPD exacerbation -steroids, nebs * Rib fracture * Possible IVDA * HTN * Tobacco dependence Subjective: unresponsive s/p sedation last night Objective: Vital Signs Temp Pulse Resp BP Pulse Ox 36.7 C 67 14 162/98 H 98 11/20/16 16:00 11/20/16 16:41 11/20/16 16:00 11/20/16 16:41 11/20/16 16:00 Laboratory Results 11/19/16 04:53 11/18/16 04:21 11/19/16 11/20/16 11/21/16 05:59 05:59 05:59 Intake Total 500 991 481 Output Total 400 1000 Balance 100 -9 481 PT 13.1 SEC (12.0-15.0) 11/15/16 11:16 INR 1.00 (0.83-1.16) 11/15/16 11:16 d/w Dr. Derian Mckeon regarding plan of care cta - no PE, small infiltrate - Physical Exam Constitutional: no apparent distress, appears nourished, not in pain Cardiovascular: regular rate and rhythym, no murmur, rub, or gallop Respiratory: no respiratory distress, no rales or rhonchi, clear to auscultation Gastrointestinal: normoactive bowel sounds, soft, non-tender abdomen, no palpable masses Skin: no rashes or abrasions, no fluctuance, no induration Neurologic: No AAOx3 Psychiatric: encephalopathic, agitated, poor insight, poor judgement, poor memory, No interacting appropriately ICD10 Worksheet Patient Problems: Problems Problem Status Onset Hypoxia Acute Rib fracture Acute Alcoholism Acute Depression Acute Suicidal ideation Acute
[2016-11-20] MEDS: FAMOTIDINE 20 MG TAB PO SCH (21:07)
[2016-11-21] MEDS: NS 1,000 ML IV SCH (00:10)
[2016-11-21] MEDS: LABETALOL HCL 5 MG/ML 20 ML MDV IVP PRN (01:09)
[2016-11-21] MEDS: LORazepam 2 MG/ML INJ IVP PRN (03:15)
[2016-11-21 04:35] LABS: % IMMATURE GRANULYOCYTES 1.9 % (0.0-1.1); ABSOLUTE IMMATURE GRANULOCYTES 0.17 10^3/uL (0.00-0.10); ADD DIFF? NO; ADD MORPH? NO; ADD SCAN? NO; ATYPICAL LYMPHOCYTE FLAG 50 (0-99); FRAGMENT RBC FLAG 0 (0-99); HEMATOCRIT 36.6 % (40.0-51.0); HEMOGLOBIN 12.8 g/dL (13.7-17.5); LEFT SHIFT FLG 10 (0-99); LIPEMIA HEMOLYSIS FLAG 90 (0-99); MEAN CELL HEMOGLOBIN 34.5 pg (27.9-34.1); MEAN CELL VOLUME 98.7 fL (81.5-99.8); MEAN PLATELET VOLUME 9.3 fL (8.7-11.7); PLATELET CLUMPS FLAG 10 (0-99); PLATELET COUNT 317 10^3/uL (150-400); RED BLOOD CELL COUNT 3.71 10^6/uL (4.40-6.38); RED CELL DISTRIBUTION WIDTH 13.3 % (11.5-15.2)
[2016-11-21 04:55] LABS: ALANINE AMINOTRANSFERASE 42 IU/L (21-72); ALBUMIN 3.3 g/dL (3.5-5.0); ALKALINE PHOSPHATASE 75 IU/L (38-126); ANION GAP 9 mEq/L (8-16); ASPARTATE AMINOTRANSFERASE 45 IU/L (17-59); BILIRUBIN,TOTAL 0.7 mg/dL (0.1-1.4); BILIRUBIN-CONJUGATED 0.5 mg/dL (0.0-0.5); BILIRUBIN-UNCONJUGATED 0.2 mg/dL (0.0-1.1); CALCIUM 8.4 mg/dL (8.5-10.4); CARBON DIOXIDE 23 mEq/l (22-31); CHLORIDE 107 mEq/L (97-110); CREATININE 0.6 mg/dL (0.7-1.3); GLOMERULAR FILTRATION RATE > 60; GLUCOSE 104 mg/dL (70-100); MAGNESIUM 1.9 mg/dL (1.6-2.3); POTASSIUM 3.5 mEq/L (3.5-5.2); SODIUM 139 mEq/L (134-144); TOTAL PROTEIN 6.8 g/dL (6.3-8.2)
[2016-11-21] MEDS: hydrALAZINE 20 MG/ML VIAL IVP PRN (05:49)
[2016-11-21] MEDS: ASPIRIN 325 MG TAB PO SCH (07:59)
[2016-11-21] MEDS: THIAMINE HCL 200 MG/2 ML VIAL IM SCH (07:59)
[2016-11-21] MEDS: NICOTINE 21 MG/24 HR PATCH TD SCH (07:59)
[2016-11-21] MEDS: FOLIC ACID 1 MG TAB PO SCH (07:59)
[2016-11-21] MEDS: FAMOTIDINE 20 MG TAB PO SCH (07:59)
[2016-11-21] MEDS: MULTIVITAMINS 1 EACH TAB PO SCH (07:59)
[2016-11-21] MEDS: ERTAPENEM 1 GM in NS 100 ML IV SCH (07:59)
[2016-11-21] MEDS: chlordiazePOXIDE 25 MG CAP PO SCH (08:00)
[2016-11-21] MEDS: ENOXAPARIN 40 MG/0.4 ML SYR SC SCH (08:00)
[2016-11-21] MEDS ORDERED: chlordiazePOXIDE 25 MG CAP PO PRN (11:17)
[2016-11-21] MEDS: IPRATROPIUM/ALBUTEROL 3 ML DEYVIAL IH SCH ×3 (11:50→23:12)
--- NOTE | 2016-11-21 14:16 | HOSPPROG ---
Hospitalist Progress Note Assessment/Plan: * Etoh withdrawal - severe -IV precedex gtt - wean to off -prn librium - will also wean * Acute respiratory failure -improved, now on RA * Pneumonia, possible aspiration -IV Invanz - change to PO Augmentin * COPD exacerbation -steroids, nebs * Rib fracture * Metabolic encephalopathy - slow improvement * Possible IVDA * HTN * Tobacco dependence Subjective: Was still on Precedex overnight, stopped this am. Eating well. Unsteady on feet. Objective: Vital Signs Temp Pulse Resp BP Pulse Ox 36.7 C 76 17 109/76 94 11/21/16 08:00 11/21/16 12:11 11/21/16 12:11 11/21/16 12:00 11/21/16 12:11 Laboratory Results 11/21/16 04:20 11/21/16 04:20 11/20/16 11/21/16 11/22/16 05:59 05:59 05:59 Intake Total 991 3401 Output Total 1000 425 Balance -9 2976 PT 13.1 SEC (12.0-15.0) 11/15/16 11:16 INR 1.00 (0.83-1.16) 11/15/16 11:16 d/w Dr. Mckeon - tx to SDU today tele - NSR - Physical Exam Constitutional: no apparent distress, appears nourished, not in pain Cardiovascular: regular rate and rhythym, no murmur, rub, or gallop Respiratory: no respiratory distress, no rales or rhonchi, clear to auscultation Gastrointestinal: normoactive bowel sounds, soft, non-tender abdomen, no palpable masses Skin: no rashes or abrasions, no fluctuance, no induration Psychiatric: anxious, poor insight, poor judgement, poor memory, No interacting appropriately, No thought process linear, No agitated ICD10 Worksheet Patient Problems: Problems Problem Status Onset Hypoxia Acute Rib fracture Acute Alcoholism Acute Depression Acute Suicidal ideation Acute
--- NOTE | 2016-11-21 16:31 | ASMTCMCOM ---
CM Note CM Note Notes: Patient continues to be confused and unsteady. More cooperative today. He is to have a cognitive eval. Date Signed: 11/21/2016 04:31 PM Electronically Signed By:Lakeshia Sprague LCSW
[2016-11-21] MEDS: AMOXICILLIN/CLAVULANATE POT 875/125 MG TAB PO SCH (20:52)
[2016-11-22] MEDS: IPRATROPIUM/ALBUTEROL 3 ML DEYVIAL IH SCH ×3 (05:51→17:26)
[2016-11-22] MEDS: FOLIC ACID 1 MG TAB PO SCH (09:28)
[2016-11-22] MEDS: THIAMINE HCL 200 MG/2 ML VIAL IM SCH (09:28)
[2016-11-22] MEDS: AMOXICILLIN/CLAVULANATE POT 875/125 MG TAB PO SCH ×2 (09:28→21:18)
[2016-11-22] MEDS: ASPIRIN 325 MG TAB PO SCH (09:28)
[2016-11-22] MEDS: MULTIVITAMINS 1 EACH TAB PO SCH (09:28)
[2016-11-22] MEDS: NICOTINE 21 MG/24 HR PATCH TD SCH (09:29)
[2016-11-22] MEDS: ENOXAPARIN 40 MG/0.4 ML SYR SC SCH (09:29)
[2016-11-22] MEDS ORDERED: HALOPERIDOL LACT 5 MG/ML INJ IVP PRN (10:13)
[2016-11-22] MEDS ORDERED: chlordiazePOXIDE 25 MG CAP PO ONE ×2 (10:30→14:15)
--- NOTE | 2016-11-22 12:25 | ASMTCMCOM ---
CM Note CM Note Notes: Chart reviewed. Per PT patient will need SNF. Per RN patient still needs CIWA . To transfer to med surg today. Attempted to see patient but he is asleep. CM to follow. Date Signed: 11/22/2016 12:24 PM Electronically Signed By:Monique Leyva RN
[2016-11-22] MEDS ORDERED: OLANZapine DISINTEGR 5 MG TAB PO PRN (12:35)
--- NOTE | 2016-11-22 14:25 | HOSPPROG ---
Hospitalist Progress Note Assessment/Plan: * Etoh withdrawal - severe -wean librium, prn zyprexa * Acute respiratory failure -improved, now on RA * Pneumonia, possible aspiration -PO Augmentin * COPD exacerbation -steroids, nebs * Rib fracture * Metabolic encephalopathy - slow improvement * Possible IVDA * HTN * Tobacco dependence Subjective: very confused, doesn't know where he is Objective: Vital Signs Temp Pulse Resp BP Pulse Ox 36.9 C 86 18 123/79 H 100 11/22/16 12:00 11/22/16 12:00 11/22/16 12:00 11/22/16 12:00 11/22/16 11:10 Microbiology 11/16/16 17:50 Blood Culture - Final Blood 11/16/16 17:50 Blood Culture - Final Blood Laboratory Results 11/21/16 04:20 11/21/16 04:20 11/21/16 11/22/16 11/23/16 05:59 05:59 05:59 Intake Total 3401 1347 Output Total 425 500 Balance 2976 847 PT 13.1 SEC (12.0-15.0) 11/15/16 11:16 INR 1.00 (0.83-1.16) 11/15/16 11:16 - Physical Exam Constitutional: no apparent distress, appears nourished, not in pain Cardiovascular: regular rate and rhythym, no murmur, rub, or gallop Respiratory: no respiratory distress, no rales or rhonchi, clear to auscultation Gastrointestinal: normoactive bowel sounds, soft, non-tender abdomen, no palpable masses Skin: no rashes or abrasions, no fluctuance, no induration Neurologic: No AAOx3 Psychiatric: encephalopathic, anxious, agitated, poor insight, poor judgement, poor memory ICD10 Worksheet Patient Problems: Problems Problem Status Onset Hypoxia Acute Rib fracture Acute Alcoholism Acute Depression Acute Suicidal ideation Acute
[2016-11-22] MEDS: chlordiazePOXIDE 25 MG CAP PO SCH ×2 (17:00→21:19)
--- NOTE | 2016-11-22 18:25 | PDINTPN ---
Inside Sales Account Executive Progress Note Assessment/Plan: Assessment: EtOH Withdrawal: Severe. Off Precedex however has received significant Haldol. On Librium but is not been getting this as this was changed to p.r.n. decreasing Haldol significantly and restarting low-dose Librium may be of benefit. RLL aspiration pneumonia: CXR improved on 11/19, oxygen needs resolved, on room air. On Ertapenem. No indication for bronchoscopy at this time. Needs repeat x -ray tomorrow. Tob Abuse/COPD: On duo nebs, broncho pulmonary therapies. Prophylaxis: On enoxaparin and famotidine. Plan: Continue scheduled Librium. Decreased Haldol. Continue CIWA. Continue antibiotics for pneumonia, bronchodilator treatments. Ativan and Precedex if needed again can be given. Follow laboratory, clinical status. Continue prophylactic enoxaparin and famotidine orally. Increase mobilization as tolerated. Began to look at disposition issues for discharge. 25 minutes of critical care time spent directly with the patient. Discussed with nursing, RT, and the ICU multi disciplinary team. Subjective: Doing okay. Slow responses but conversant. Oriented for me times -02/06. Unclear as to exact date. Denies shortness of breath or pain. Objective: Vital Signs Temp Pulse Resp BP Pulse Ox 36.7 C 96 18 99/70 L 97 11/22/16 16:00 11/22/16 16:00 11/22/16 16:00 11/22/16 16:00 11/22/16 16:00 Microbiology 11/16/16 17:50 Blood Culture - Final Blood 11/16/16 17:50 Blood Culture - Final Blood Laboratory Results 11/21/16 04:20 11/21/16 04:20 11/21/16 11/22/16 11/23/16 05:59 05:59 05:59 Intake Total 3401 1347 Output Total 425 500 Balance 2976 847 PT 13.1 SEC (12.0-15.0) 11/15/16 11:16 INR 1.00 (0.83-1.16) 11/15/16 11:16 CT head yesterday: No acute findings. Atrophy present Physical Exam - Physical Exam General Appearance: alert (But slow to respond), no apparent distress, thin EENT: PERRL/EOMI, other (On room air) Neck: normal inspection (No JVD) Respiratory: lungs clear (Anteriorly), decreased breath sounds (At bases), rales (Few bibasilar rales present, right greater than left), rhonchi (No shnati rhonchi but some central congestion with exhalation/cough, mild), No wheezing Cardiac/Chest: regular rate, rhythm, systolic murmur, No gallop Abdomen: normal bowel sounds, non-tender, soft, other (Able to eat without problems) Male Genitalia: other (No Porras catheter. Using urinal) Skin: normal color, warm/dry Lymphatic: no adenopathy Extremities: No pedal edema Neuro/Psych: no motor/sensory deficits (Moves all extremities equally), cognition abnormalities (Slow to respond, oriented x2 +: In part secondary to alcohol withdrawal, impart secondary to medications. Apparently he is relatively sharp at baseline?) ICD10 Worksheet Patient Problems: Problems Problem Status Onset Alcoholism Acute Depression Acute Suicidal ideation Acute Rib fracture Acute Hypoxia Acute
[2016-11-23] MEDS: IPRATROPIUM/ALBUTEROL 3 ML DEYVIAL IH SCH ×2 (00:25→06:03)
[2016-11-23 05:54] LABS: % IMMATURE GRANULYOCYTES 0.7 % (0.0-1.1); ABSOLUTE IMMATURE GRANULOCYTES 0.08 10^3/uL (0.00-0.10); ADD DIFF? NO; ADD MORPH? NO; ADD SCAN? NO; ATYPICAL LYMPHOCYTE FLAG 40 (0-99); FRAGMENT RBC FLAG 0 (0-99); HEMATOCRIT 35.4 % (40.0-51.0); HEMOGLOBIN 12.5 g/dL (13.7-17.5); LEFT SHIFT FLG 0 (0-99); LIPEMIA HEMOLYSIS FLAG 90 (0-99); MEAN CELL HEMOGLOBIN CONCENTR. 35.3 g/dL (32.4-36.7); MEAN CELL VOLUME 99.2 fL (81.5-99.8); MEAN PLATELET VOLUME 9.4 fL (8.7-11.7); PLATELET CLUMPS FLAG 0 (0-99); PLATELET COUNT 402 10^3/uL (150-400); RED BLOOD CELL COUNT 3.57 10^6/uL (4.40-6.38); RED CELL DISTRIBUTION WIDTH 13.4 % (11.5-15.2)
[2016-11-23 06:14] LABS: ANION GAP 10 mEq/L (8-16); CALCIUM 8.5 mg/dL (8.5-10.4); CARBON DIOXIDE 23 mEq/l (22-31); CHLORIDE 109 mEq/L (97-110); CREATININE 0.6 mg/dL (0.7-1.3); GLOMERULAR FILTRATION RATE > 60; GLUCOSE 70 mg/dL (70-100); POTASSIUM 3.6 mEq/L (3.5-5.2); SODIUM 142 mEq/L (134-144)
[2016-11-23] MEDS: LORazepam 2 MG/ML INJ IVP PRN ×3 (07:44→16:00)
[2016-11-23] MEDS: chlordiazePOXIDE 25 MG CAP PO SCH (07:54)
[2016-11-23] MEDS ORDERED: IPRATROPIUM/ALBUTEROL 3 ML DEYVIAL IH PRN (08:27)
[2016-11-23] MEDS ORDERED: chlordiazePOXIDE 25 MG CAP PO PRN (08:28)
[2016-11-23] MEDS: AMOXICILLIN/CLAVULANATE POT 875/125 MG TAB PO SCH ×2 (09:35→23:25)
[2016-11-23] MEDS: ASPIRIN 325 MG TAB PO SCH (09:35)
[2016-11-23] MEDS: THIAMINE HCL 100 MG TAB PO SCH (09:54)
[2016-11-23] MEDS: FOLIC ACID 1 MG TAB PO SCH (09:54)
[2016-11-23] MEDS: MULTIVITAMINS 1 EACH TAB PO SCH (09:54)
[2016-11-23] MEDS: ENOXAPARIN 40 MG/0.4 ML SYR SC SCH (09:58)
[2016-11-23] MEDS: NICOTINE 21 MG/24 HR PATCH TD SCH (10:02)
[2016-11-23] MEDS: chlordiazePOXIDE 25 MG CAP PO PRN ×2 (12:15→23:29)
--- NOTE | 2016-11-23 15:11 | HOSPPROG ---
Hospitalist Progress Note Assessment/Plan: * Etoh withdrawal - severe -continues to require significant doses of benzos -continue per CIWA * Acute respiratory failure -improved, now on RA * Aspiration pneumonia -PO Augmentin * COPD exacerbation -steroids, nebs * Rib fracture * Metabolic encephalopathy - slow improvement * Possible IVDA * HTN * Tobacco dependence - patch Subjective: Very agitated again this am, still very confused Objective: Vital Signs Temp Pulse Resp BP Pulse Ox 36.4 C 100 20 138/84 H 92 11/23/16 12:00 11/23/16 12:00 11/23/16 12:00 11/23/16 12:00 11/23/16 04:00 Laboratory Results 11/23/16 04:21 11/23/16 04:21 11/22/16 11/23/16 11/24/16 05:59 05:59 05:59 Intake Total 1347 Output Total 500 300 Balance 847 -300 PT 13.1 SEC (12.0-15.0) 11/15/16 11:16 INR 1.00 (0.83-1.16) 11/15/16 11:16 - Physical Exam Constitutional: no apparent distress, appears nourished, not in pain Cardiovascular: regular rate and rhythym, no murmur, rub, or gallop Respiratory: no respiratory distress, no rales or rhonchi, clear to auscultation Gastrointestinal: normoactive bowel sounds, soft, non-tender abdomen, no palpable masses Skin: no rashes or abrasions, no fluctuance, no induration ICD10 Worksheet Patient Problems: Problems Problem Status Onset Hypoxia Acute Rib fracture Acute Alcoholism Acute Depression Acute Suicidal ideation Acute
[2016-11-23] MEDS ORDERED: ZIPRASIDONE MESYLATE 20 MG VIAL IM ONE (15:51)
[2016-11-23] MEDS ORDERED: LORazepam 2 MG/ML INJ ONE (15:55)
[2016-11-23] MEDS: HALOPERIDOL LACT 5 MG/ML INJ IVP PRN (16:07)
--- NOTE | 2016-11-23 20:10 | SOAPPROG ---
SOAP Progress Note Assessment/Plan: Assessment: EtOH Withdrawal: Remains on CIWA. More lethargic this afternoon secondary to benzodiazepines. RLL aspiration pneumonia: CXR improved, oxygen needs resolved, on room air. On Augmentin. Tob Abuse/COPD: On duo nebs, broncho pulmonary therapies. Prophylaxis: On enoxaparin and famotidine. Plan: Continue CIWA, with Librium and Ativan as needed. Continue antibiotics for pneumonia, bronchodilator treatments. Follow laboratory, clinical status. Continue prophylactic enoxaparin and famotidine orally. Increase mobilization as tolerated. Began to look at disposition issues for discharge. Subjective: Sedated, arouses, but not conversant Objective: Vital Signs Temp Pulse Resp BP Pulse Ox 36.3 C 78 18 147/93 H 93 11/23/16 19:31 11/23/16 19:31 11/23/16 19:31 11/23/16 19:31 11/23/16 19:31 Laboratory Results 11/23/16 04:21 11/23/16 04:21 11/22/16 11/23/16 11/24/16 05:59 05:59 05:59 Intake Total 1347 Output Total 500 300 Balance 847 -300 PT 13.1 SEC (12.0-15.0) 11/15/16 11:16 INR 1.00 (0.83-1.16) 11/15/16 11:16 CXR: Continued improvement in right basilar infiltrate. Still with some perihilar density or atelectasis. Physical Exam - Physical Exam General Appearance: thin, other (Lethargic secondary to sedating medications, arouses) EENT: PERRL/EOMI, other (On room air) Neck: normal inspection Respiratory: lungs clear (Anteriorly), decreased breath sounds (At bases), rales (Few at bases), No wheezing Cardiac/Chest: regular rate, rhythm Abdomen: normal bowel sounds, non-tender, soft Skin: normal color, warm/dry Extremities: pedal edema (Trace) Neuro/Psych: no motor/sensory deficits (Moves all extremities weakly), cognition abnormalities ICD10 Worksheet Patient Problems: Problems Problem Status Onset Alcoholism Acute Depression Acute Suicidal ideation Acute Rib fracture Acute Hypoxia Acute
[2016-11-23] MEDS: FLUTICASONE/SALMETER 250/50MCG DISKUS IH SCH (21:37)
[2016-11-24] MEDS: LORazepam 2 MG/ML INJ IVP PRN ×3 (02:35→22:14)
[2016-11-24] MEDS: HALOPERIDOL LACT 5 MG/ML INJ IVP PRN (03:05)
[2016-11-24] MEDS: FLUTICASONE/SALMETER 250/50MCG DISKUS IH SCH ×2 (09:32→23:13)
[2016-11-24] MEDS: ASPIRIN 325 MG TAB PO SCH (09:45)
[2016-11-24] MEDS: AMOXICILLIN/CLAVULANATE POT 875/125 MG TAB PO SCH ×2 (09:45→21:49)
[2016-11-24] MEDS: ENOXAPARIN 40 MG/0.4 ML SYR SC SCH (09:46)
[2016-11-24] MEDS: THIAMINE HCL 100 MG TAB PO SCH (09:46)
[2016-11-24] MEDS: MULTIVITAMINS 1 EACH TAB PO SCH (09:46)
[2016-11-24] MEDS: FOLIC ACID 1 MG TAB PO SCH (09:46)
[2016-11-24] MEDS: NICOTINE 21 MG/24 HR PATCH TD SCH (09:46)
[2016-11-24 12:36] LABS: % IMMATURE GRANULYOCYTES 0.9 % (0.0-1.1); ABSOLUTE IMMATURE GRANULOCYTES 0.22 10^3/uL (0.00-0.10); ADD DIFF? NO; ADD MORPH? NO; ADD SCAN? YES; ATYPICAL LYMPHOCYTE FLAG 10 (0-99); FRAGMENT RBC FLAG 0 (0-99); HEMATOCRIT 37.1 % (40.0-51.0); HEMOGLOBIN 12.8 g/dL (13.7-17.5); LEFT SHIFT FLG 0 (0-99); LIPEMIA HEMOLYSIS FLAG 90 (0-99); MEAN CELL HEMOGLOBIN 34.3 pg (27.9-34.1); MEAN CELL HEMOGLOBIN CONCENTR. 34.5 g/dL (32.4-36.7); MEAN CELL VOLUME 99.5 fL (81.5-99.8); PLATELET CLUMPS FLAG 0 (0-99); PLATELET COUNT 427 10^3/uL (150-400); RED BLOOD CELL COUNT 3.73 10^6/uL (4.40-6.38); RED CELL DISTRIBUTION WIDTH 13.3 % (11.5-15.2)
[2016-11-24 16:25] LABS: SCAN NEGATIVE
--- NOTE | 2016-11-24 17:51 | ASMTCMCOM ---
CM Note CM Note Notes: Pt continues with a tremendous amount of confusion and instability, was extremely combattive yesterday and security called. Do not think at this point pt can return home and may need snf. Will need Ultc-100, CM w/f Date Signed: 11/24/2016 05:50 PM Electronically Signed By:Annette Redding RN
--- NOTE | 2016-11-24 17:58 | HOSPPROG ---
Hospitalist Progress Note Assessment/Plan: * Etoh withdrawal - severe -continues to require significant doses of benzos -continue per CIWA * Acute respiratory failure -improved, now on RA * Aspiration pneumonia -PO Augmentin * COPD exacerbation -steroids, nebs * Rib fracture * Metabolic encephalopathy - slow improvement * Possible IVDA * HTN * Tobacco dependence - patch Subjective: Extreme agitation yesterday - improved with IM Geodon and IV ativan. Sleeping now. Objective: Vital Signs Temp Pulse Resp BP Pulse Ox 37.7 C 108 H 24 H 128/89 H 90 L 11/24/16 15:36 11/24/16 15:36 11/24/16 15:36 11/24/16 15:36 11/24/16 15:36 Laboratory Results 11/24/16 12:30 11/23/16 04:21 11/23/16 11/24/16 11/25/16 05:59 05:59 05:59 Intake Total 300 Output Total 300 Balance -300 300 PT 13.1 SEC (12.0-15.0) 11/15/16 11:16 INR 1.00 (0.83-1.16) 11/15/16 11:16 - Physical Exam Constitutional: no apparent distress, appears nourished, not in pain Cardiovascular: regular rate and rhythym, no murmur, rub, or gallop Respiratory: no respiratory distress, no rales or rhonchi, clear to auscultation Gastrointestinal: normoactive bowel sounds, soft, non-tender abdomen, no palpable masses Skin: no rashes or abrasions, no fluctuance, no induration Neurologic: No AAOx3 Psychiatric: encephalopathic, agitated, poor insight, poor judgement, poor memory, No interacting appropriately ICD10 Worksheet Patient Problems: Problems Problem Status Onset Hypoxia Acute Rib fracture Acute Alcoholism Acute Depression Acute Suicidal ideation Acute
[2016-11-24] MEDS: HYDROmorphONE/DILAUDID 1 MG/ML INJ IVP PRN (22:14)
[2016-11-25 05:47] LABS: % IMMATURE GRANULYOCYTES 0.6 % (0.0-1.1); ABSOLUTE IMMATURE GRANULOCYTES 0.11 10^3/uL (0.00-0.10); ADD DIFF? NO; ADD MORPH? NO; ADD SCAN? NO; ATYPICAL LYMPHOCYTE FLAG 20 (0-99); FRAGMENT RBC FLAG 0 (0-99); HEMATOCRIT 36.3 % (40.0-51.0); HEMOGLOBIN 12.3 g/dL (13.7-17.5); LEFT SHIFT FLG 0 (0-99); LIPEMIA HEMOLYSIS FLAG 90 (0-99); MEAN CELL HEMOGLOBIN 34.6 pg (27.9-34.1); MEAN CELL HEMOGLOBIN CONCENTR. 33.9 g/dL (32.4-36.7); MEAN CELL VOLUME 102.3 fL (81.5-99.8); MEAN PLATELET VOLUME 9.1 fL (8.7-11.7); PLATELET CLUMPS FLAG 20 (0-99); PLATELET COUNT 422 10^3/uL (150-400); RED BLOOD CELL COUNT 3.55 10^6/uL (4.40-6.38); RED CELL DISTRIBUTION WIDTH 13.4 % (11.5-15.2)
[2016-11-25] MEDS: NICOTINE 21 MG/24 HR PATCH TD SCH (09:05)
[2016-11-25] MEDS: ASPIRIN 325 MG TAB PO SCH (09:07)
[2016-11-25] MEDS: ENOXAPARIN 40 MG/0.4 ML SYR SC SCH (09:07)
[2016-11-25] MEDS: AMOXICILLIN/CLAVULANATE POT 875/125 MG TAB PO SCH (09:07)
[2016-11-25] MEDS: FOLIC ACID 1 MG TAB PO SCH (09:08)
[2016-11-25] MEDS: THIAMINE HCL 100 MG TAB PO SCH (09:08)
[2016-11-25] MEDS: FLUTICASONE/SALMETER 250/50MCG DISKUS IH SCH ×2 (09:08→19:44)
[2016-11-25] MEDS: MULTIVITAMINS 1 EACH TAB PO SCH (09:08)
--- NOTE | 2016-11-25 10:42 | HOSPPROG ---
Hospitalist Progress Note Assessment/Plan: 65 yo M w fall, rib fracture alcohol withdrawal Etoh withdrawal- he is now 10 days into hospitalization no tongue fasciculations, tahcycardia or hypertension I believe is he past acute alcohol withdrawal today behavioral outbursts possibly 2/2 med intoxication 1. stop benzos, haldol 2. continue prn zyprexa Acute respiratory failure -improved, now on RA cxr w improving RLL infiltrate (interp by me) Aspiration pneumonia -PO Augmentin see above COPD exacerbation continue nebs off steroids Rib fracture is lidocaine patch offered Metabolic encephalopathy - slow improvement as above, dc benzos Possible IVDA HTN Tobacco dependence - patch proph: lmwh Subjective: alert, sedated. was apparently quite agitated yesterday aternoon Objective: Vital Signs Temp Pulse Resp BP Pulse Ox 36.6 C 81 16 114/82 H 90 L 11/25/16 08:00 11/25/16 08:00 11/25/16 08:00 11/25/16 08:00 11/25/16 04:00 Laboratory Results 11/25/16 05:28 11/23/16 04:21 11/24/16 11/25/16 11/26/16 05:59 05:59 05:59 Intake Total 300 Balance 300 PT 13.1 SEC (12.0-15.0) 11/15/16 11:16 INR 1.00 (0.83-1.16) 11/15/16 11:16 - Physical Exam Constitutional: no apparent distress, appears nourished, chronically ill appearing Eyes: PERRL, anicteric sclera Ears, Nose, Mouth, Throat: moist mucous membranes, hearing normal Cardiovascular: regular rate and rhythym, no murmur, rub, or gallop Respiratory: no respiratory distress, other (crackles R base, good aair movement , no wheeze), No no rales or rhonchi Gastrointestinal: normoactive bowel sounds, soft, non-tender abdomen Genitourinary: no bladder fullness, No baker in urethra Skin: warm, normal color Musculoskeletal: full muscle strength, no muscle tenderness Neurologic: No AAOx3 Psychiatric: interacting appropriately ICD10 Worksheet Patient Problems: Problems Problem Status Onset Hypoxia Acute Rib fracture Acute Alcoholism Acute Depression Acute Suicidal ideation Acute
[2016-11-25] MEDS: LIDOCAINE 5% 1 EA PATCH TD SCH (10:43)
--- NOTE | 2016-11-25 13:47 | SOAPPROG ---
SOAP Progress Note Assessment/Plan: Assessment: EtOH Withdrawal: Resolving, off CIWA. Off benzodiazepines. Abnormal mental status: Improving, with but still quite impaired, slow, confused, poor memory. Some of this may be secondary to chronic alcoholism, and slow metabolism of previous medications. RLL aspiration pneumonia: CXR improved, oxygen needs resolved, on room air. Off antibiotics. Tob Abuse/COPD: On duo nebs, broncho pulmonary therapies. Prophylaxis: On enoxaparin and famotidine. Plan: Continue care. Increase mobilization. Continue bronchodilator treatments. Follow laboratory, clinical status. Continue prophylactic enoxaparin and famotidine. Will need residential facility on discharge. Will sign off at this point. Subjective: Up walking in the halls slowly with a walker and physical therapy. Needing no oxygen. Confused. Objective: Vital Signs Temp Pulse Resp BP Pulse Ox 36.6 C 81 16 114/82 H 90 L 11/25/16 08:00 11/25/16 08:00 11/25/16 08:00 11/25/16 08:00 11/25/16 04:00 Laboratory Results 11/25/16 05:28 11/23/16 04:21 11/24/16 11/25/16 11/26/16 05:59 05:59 05:59 Intake Total 300 Balance 300 PT 13.1 SEC (12.0-15.0) 11/15/16 11:16 INR 1.00 (0.83-1.16) 11/15/16 11:16 Physical Exam - Physical Exam General Appearance: alert, thin, other (Confused), No mild distress EENT: PERRL/EOMI, other (On room air) Neck: normal inspection (No JVD), No lymphadenopathy (R), No lymphadenopathy (L) , No thyromegaly Respiratory: lungs clear (Anteriorly), decreased breath sounds, No rhonchi, No wheezing Cardiac/Chest: regular rate, rhythm Abdomen: normal bowel sounds, non-tender, soft Skin: normal color, warm/dry Extremities: No pedal edema Neuro/Psych: no motor/sensory deficits (But somewhat weak globally.), cognition abnormalities ICD10 Worksheet Patient Problems: Problems Problem Status Onset Alcoholism Acute Depression Acute Suicidal ideation Acute Rib fracture Acute Hypoxia Acute
--- NOTE | 2016-11-25 15:20 | ASMTCMCOM ---
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 ULTC-100 started in [employer]; still needs pt income source, emergency contact information and pt signature. This CM did not meet w pt for this information as fancy wire drawer note indicates pt still confused today. [employer] staff emailed to submit LTC shayna to [facility]vel[facility] Fr[facility]. 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 Chart indicates pt has a who does not live w him. No contacts listed in demo, no contact for in electronic chart. Date Signed: 11/25/2016 03:20 PM Electronically Signed By:MARYAM Caldera
[2016-11-25] MEDS: PATCH REMOVAL 1 EA PATCH TD SCH (19:42)
[2016-11-26 04:57] LABS: % IMMATURE GRANULYOCYTES 0.6 % (0.0-1.1); ABSOLUTE IMMATURE GRANULOCYTES 0.06 10^3/uL (0.00-0.10); ADD DIFF? NO; ADD MORPH? NO; ADD SCAN? NO; ATYPICAL LYMPHOCYTE FLAG 40 (0-99); FRAGMENT RBC FLAG 0 (0-99); HEMATOCRIT 36.2 % (40.0-51.0); HEMOGLOBIN 12.4 g/dL (13.7-17.5); LEFT SHIFT FLG 0 (0-99); LIPEMIA HEMOLYSIS FLAG 90 (0-99); MEAN CELL HEMOGLOBIN 34.3 pg (27.9-34.1); MEAN CELL HEMOGLOBIN CONCENTR. 34.3 g/dL (32.4-36.7); MEAN CELL VOLUME 100.3 fL (81.5-99.8); MEAN PLATELET VOLUME 9.1 fL (8.7-11.7); PLATELET CLUMPS FLAG 10 (0-99); PLATELET COUNT 424 10^3/uL (150-400); RED BLOOD CELL COUNT 3.61 10^6/uL (4.40-6.38); RED CELL DISTRIBUTION WIDTH 13.2 % (11.5-15.2)
[2016-11-26 05:05] LABS: ANION GAP 9 mEq/L (8-16); CALCIUM 8.6 mg/dL (8.5-10.4); CARBON DIOXIDE 28 mEq/l (22-31); CHLORIDE 106 mEq/L (97-110); CREATININE 0.6 mg/dL (0.7-1.3); GLOMERULAR FILTRATION RATE > 60; GLUCOSE 88 mg/dL (70-100); POTASSIUM 3.4 mEq/L (3.5-5.2); SODIUM 143 mEq/L (134-144)
[2016-11-26] MEDS: NICOTINE 21 MG/24 HR PATCH TD SCH (09:36)
--- NOTE | 2016-11-26 09:52 | HOSPPROG ---
Hospitalist Progress Note Assessment/Plan: 65 yo M w fall, rib fracture alcohol withdrawal Etoh withdrawal- he is now 10 days into hospitalization no tongue fasciculations, tahcycardia or hypertension I believe is he past acute alcohol withdrawal today behavioral outbursts possibly 2/2 med intoxication 1. stop benzos, haldol 2. continue prn zyprexa 11/26- more alert Acute respiratory failure -improved, now on RA cxr w improving RLL infiltrate (interp by me) Aspiration pneumonia -completed courese of abx COPD exacerbation continue nebs off steroids Rib fracture is lidocaine patch offered Metabolic encephalopathy - slow improvement as above, dc benzos Possible IVDA HTN Tobacco dependence - patch proph: lmwh Subjective: more alert. eating. still confused. case d/w dr astudillo Objective: Vital Signs Temp Pulse Resp BP Pulse Ox 36.4 C 86 18 116/81 H 93 11/26/16 07:35 11/26/16 07:35 11/26/16 07:35 11/26/16 07:35 11/26/16 07:35 Laboratory Results 11/26/16 04:43 11/26/16 04:43 11/25/16 11/26/16 11/27/16 05:59 05:59 05:59 Intake Total 300 0 Balance 300 0 PT 13.1 SEC (12.0-15.0) 11/15/16 11:16 INR 1.00 (0.83-1.16) 11/15/16 11:16 - Physical Exam Constitutional: no apparent distress, appears nourished, chronically ill appearing Eyes: PERRL, anicteric sclera Ears, Nose, Mouth, Throat: moist mucous membranes, hearing normal Cardiovascular: regular rate and rhythym, no murmur, rub, or gallop, No systolic murmur Respiratory: no respiratory distress, no rales or rhonchi Gastrointestinal: normoactive bowel sounds, soft, non-tender abdomen Genitourinary: no bladder fullness, No baker in urethra Skin: warm, normal color Musculoskeletal: full muscle strength Neurologic: No AAOx3 ICD10 Worksheet Patient Problems: Problems Problem Status Onset Hypoxia Acute Rib fracture Acute Alcoholism Acute Depression Acute Suicidal ideation Acute
[2016-11-26] MEDS: LIDOCAINE 5% 1 EA PATCH TD SCH (10:09)
[2016-11-26] MEDS: FOLIC ACID 1 MG TAB PO SCH (10:09)
[2016-11-26] MEDS: FLUTICASONE/SALMETER 250/50MCG DISKUS IH SCH ×2 (10:09→22:06)
[2016-11-26] MEDS: ASPIRIN 325 MG TAB PO SCH (10:09)
[2016-11-26] MEDS: MULTIVITAMINS 1 EACH TAB PO SCH (10:09)
[2016-11-26] MEDS: ENOXAPARIN 40 MG/0.4 ML SYR SC SCH (10:09)
[2016-11-26] MEDS: THIAMINE HCL 100 MG TAB PO SCH (10:10)
[2016-11-26] MEDS: PATCH REMOVAL 1 EA PATCH TD SCH (21:00)
[2016-11-27 07:54] VITALS: PULSE 80; O2SAT 92
[2016-11-27] MEDS: NICOTINE 21 MG/24 HR PATCH TD SCH (08:20)
[2016-11-27] MEDS: LIDOCAINE 5% 1 EA PATCH TD SCH (08:21)
[2016-11-27] MEDS: MULTIVITAMINS 1 EACH TAB PO SCH (08:21)
[2016-11-27] MEDS: FLUTICASONE/SALMETER 250/50MCG DISKUS IH SCH ×2 (08:21→08:57)
[2016-11-27] MEDS: FOLIC ACID 1 MG TAB PO SCH (08:21)
[2016-11-27] MEDS: ENOXAPARIN 40 MG/0.4 ML SYR SC SCH (08:22)
[2016-11-27] MEDS: THIAMINE HCL 100 MG TAB PO SCH (08:22)
[2016-11-27] MEDS: ASPIRIN 325 MG TAB PO SCH (08:22)
[2016-11-27 11:18] VITALS: BP 105/66; RESP 18; TEMP 98.2
--- NOTE | 2016-11-27 11:39 | HOSPPROG ---
Hospitalist Progress Note Assessment/Plan: 65 yo M w fall, rib fracture alcohol withdrawal Etoh withdrawal- he is now 13 days into hospitalization no tongue fasciculations, tahcycardia or hypertension I believe is he past acute alcohol withdrawal today (11/24) behavioral outbursts possibly 2/2 med intoxication 1. stop benzos, haldol 2. continue prn zyprexa 11/26- more alert 11/27- continues to improve Acute respiratory failure -improved, now on RA cxr w improving RLL infiltrate (interp by me) Aspiration pneumonia -completed courese of abx COPD exacerbation continue nebs off steroids Rib fracture is lidocaine patch offered Metabolic encephalopathy - slow improvement as above, dc benzos Possible IVDA HTN Tobacco dependence - patch proph: lmwh dispo: PT/OT rec SNF- I concur he wishes to go, citing things to address i feel he is too weak and confused to thrive as outpt Subjective: more alert. still confused although less so. wishes to go home Objective: Vital Signs Temp Pulse Resp BP Pulse Ox 36.8 C 80 18 105/66 92 11/27/16 11:15 11/27/16 11:15 11/27/16 11:15 11/27/16 11:15 11/27/16 11:15 Laboratory Results 11/26/16 04:43 11/26/16 04:43 11/26/16 11/27/16 11/28/16 05:59 05:59 05:59 Intake Total 0 Balance 0 PT 13.1 SEC (12.0-15.0) 11/15/16 11:16 INR 1.00 (0.83-1.16) 11/15/16 11:16 - Physical Exam Constitutional: no apparent distress, appears nourished Eyes: PERRL, anicteric sclera Ears, Nose, Mouth, Throat: moist mucous membranes, hearing normal Cardiovascular: regular rate and rhythym, no murmur, rub, or gallop Respiratory: no respiratory distress, no rales or rhonchi Gastrointestinal: normoactive bowel sounds, soft, non-tender abdomen Genitourinary: no bladder fullness, No baker in urethra Skin: warm, normal color Musculoskeletal: No full muscle strength Neurologic: No AAOx3 ICD10 Worksheet Patient Problems: Problems Problem Status Onset Hypoxia Acute Rib fracture Acute Alcoholism Acute Depression Acute Suicidal ideation Acute
--- NOTE | 2016-11-27 13:35 | ASMTCMCOM ---
CM Note CM Note Notes: Jyoti from [employer] met w/ pt today to start LTC application. CM met w/ pt for dispo planning. Pt signed [facility]-100 paperwork. CM faxed ULTC-100 paperwork to [facility]. Pt reports that he is worried that he will be evicted from his trailer home if he doesn't get back to work. 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 Pt signed paperwork to leave AMA. Pt has a friend to pick pt up. CM notified Jerry at [facility] that pt left AMA. Date Signed: 11/27/2016 01:34 PM Electronically Signed By:KSENIA Verduzco
--- NOTE | 2016-11-27 13:35 | ASDISCHSUM ---
Discharge Information Plan Status: Medically Cleared to Leave:11/27/2016 Discharge Date:11/27/2016 01:09 PM D/C Disposition: ADT D/C Disposition:Against Medical Advice Projected Discharge Date:11/27/2016 12:00 AM Transportation at D/C: Discharge Delay Reason: Follow-Up Date:11/27/2016 12:00 AM Discharge Slot: Final Diagnosis: Placement Information Patient Contact Information Contact Name:HERMINIA Relationship: Address: Home Phone: Work Phone: City: Alternate Phone: State/Zip Code: Email: Financial Information Financial Class: Primary Plan Desc:[employer] [place] [employer] Primary Plan Number:[id number] Secondary Plan Desc: Secondary Plan Number: Assessment Information [facility] Initial CM Assessment Living Arrangements What is your living Answers: With Spouse arrangement? Who do you live with? Type Of Residence What kind of residence do Answers: House you live in? Discharge Plan Comments Coordination Status Comments Notes: Chart reviewed and spoke w/ ANGELINA Santa. Pt is a 65 y/o man admitted w/ rib fracture after a fall and hypoxia. Pt is a heavy drinker. Pt is withdrawing from ETOH and being transferred to the ICU. Pt scored a 24 on his CIWA. Needs are TBD at this time. CM available for d/c needs. Date Signed: 11/16/2016 11:41 AM Electronically Signed By:KSENIA Verduzco [facility] CM Progress Note CM Note CM Note Notes: Pt is off Precedex, PT/OT evals pending. CIWA 5 at 15:00 today. Currently on IV invanz. Pt transferring to . CM will continue to follow. Date Signed: 11/17/2016 03:31 PM Electronically Signed By:Delfina Aguilar MSW [facility] CM Progress Note CM Note CM Note Notes: Pt still withdrawing, OT recs homecare and PT still pending, CM cont to assess. Date Signed: 11/18/2016 02:32 PM Electronically Signed By:Annette Redding RN [facility] CM Progress Note CM Note CM Note Notes: Patient continues to be confused and unsteady. More cooperative today. He is to have a cognitive eval. Date Signed: 11/21/2016 04:31 PM Electronically Signed By:Lakeshia Sprague LCSW [facility] CM Progress Note CM Note CM Note Notes: Chart reviewed. Per PT patient will need SNF. Per RN patient still needs CIWA . To transfer to med surg today. Attempted to see patient but he is asleep. CM to follow. Date Signed: 11/22/2016 12:24 PM Electronically Signed By:Monique Leyva RN [facility] CM Progress Note CM Note CM Note Notes: Pt continues with a tremendous amount of confusion and instability, was extremely combattive yesterday and security called. Do not think at this point pt can return home and may need snf. 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 [facility]; still needs pt income source, emergency contact information and pt signature. This CM did not meet w pt for this information as systems integration analyst note indicates pt still confused today. [employer] staff emailed to submit LTC shayna to Avelino Fraga. 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 Chart indicates pt has a who does not live w him. No contacts listed in demo, no contact for in electronic chart. Date Signed: 11/25/2016 03:20 PM Electronically Signed By:MARYAM Caldera [facility] CM Progress Note CM Note CM Note Notes: Jyoti from [employer] met w/ pt today to start LTC application. CM met w/ pt for dispo planning. Pt signed [facility]-100 paperwork. CM faxed [facility]-100 paperwork to [facility]. Pt reports that he is worried that he will be evicted from his trailer home if he doesn't get back to work. 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 Pt signed paperwork to leave AMA. Pt has a friend to pick pt up. CM notified Jerry at [facility] that pt left AMA. Date Signed: 11/27/2016 01:34 PM Electronically Signed By:KSENIA Verduzco Intervention Information
== END 2016-11-27 13:09 | disposition left against medical advice (07) | DRG 189 ==
LOC: F2W 14:57 → OBSVTOIN 17:36 → F2N 11-16 11:33 → F3E 11-17 17:38 → F2N 11-19 08:05 → F3E 11-22 17:44
PROVIDERS: ADMIT Hospitalist; ATTEND Internal Medicine
PROC: HZ2ZZZZ Detoxification Services for Substance Abuse Treatment (ICD-10-PCS; principal; 2016-11-15)
PROC: 3E03329 Introduction of Other Anti-infective into Peripheral Vein, Percutaneous Approach (ICD-10-PCS; 2016-11-16)
DX: J96.01 Acute respiratory failure with hypoxia (principal); J69.0 Pneumonitis due to inhalation of food and vomit; S22.31XA Fracture of one rib, right side, initial encounter for closed fracture; F10.239 Alcohol dependence with withdrawal, unspecified; J44.1 Chronic obstructive pulmonary disease with (acute) exacerbation; G93.41 Metabolic encephalopathy; I10 Essential (primary) hypertension; W00.0XXA Fall on same level due to ice and snow, initial encounter; Y92.028 Other place in mobile home as the place of occurrence of the external cause; F17.210 Nicotine dependence, cigarettes, uncomplicated
CPT/HCPCS: 80307; 92507-GN; 92523-GN; 96374; 97116-GP; 97162-GP; 97166-GO; 97530-GO; 97532-GO; 97535-GO; G0472; G0480; G9165-GN-CJ; G9165-GN-CK; G9166-GN-CJ; G9166-GN-CK; J0360; J1170; J1335; J1650; J2060; J2405; J3411; J3486; J3490; Q9967